=== PATIENT | female | born 1950 | race Caucasian/White ===

== ENCOUNTER 2024-11-22 09:50 | Observation (INO) | payer OTHER, SELFPAY ==
[2024-11-22] VITALS (11 sets, daily range): BP systolic 109–165; BP diastolic 48–98; PULSE 79–85; RESP 17–22; TEMP 36.6–36.9; O2SAT 94–100; BMI 36.3
--- NOTE | 2024-11-22 09:58 | ECG_ITS ---
Test Date: 2024-11-22 10:04:51 Measurements Intervals [place] Rate: 79 P: -66 SD: 220 QRS: 134 QRSD: 169 T: 112 QT: 430 QTc: 494 Interpretive Statements ELECTRONIC VENTRICULAR PACEMAKER ABNORMAL RHYTHM ECG No previous ECG available for comparison Electronically Signed On 11-23-2024 09:53:34 CDT by Saman Maravilla M.D.
--- NOTE | 2024-11-22 10:29 | ED_ITS ---
HPI - Female Genitourinary General Chief complaint: Urogenital-Female Stated complaint: UTI sx Time Seen by Provider: 11/22/24 09:52 History of Present Illness HPI Narrative: Patient has had symptoms consistent with urinary tract infection, she describes foul smelling urine and pain with urination, unfortunately she has been stuck on her couch, blocked in by chair, and had tried for days to get out. She does have some pain to her lower back however this is chronic from an old work injury, no new pain anywhere. Related Data Allergies Allergy/AdvReac Type Severity Reaction Status Date / Time atorvastatin Allergy Rash Verified 11/22/24 10:09 Review of Systems 2 Review of Systems: All systems reviewed & are unremarkable except as noted in HPI and below Exam 2 Narrative: EXAMINATION OF ORGAN SYSTEMS/BODY AREAS: Constitutional: Vital signs per nursing GENERAL:[No acute distress, non-toxic appearing.] Obese. Malodorous. HEAD: Normal with no signs of head trauma. EYES: EOMI, conjunctiva normal ENT: Hearing grossly intact LUNGS: Nonlabored breathing. HEART: [Regular rate and rhythm] ABD: [Soft], [nontender to palpation] EXT: Normal range of motion SKIN: Raw red skin buttocks; small red patch right lower leg. NEURO: [Alert and oriented x 3. No gross focal sensory or strength deficits.] PSYCH: Normal affect Course Vital Signs Vital signs: Vital Signs Temperature 98 F 11/22/24 10:02 Pulse Rate 80 11/22/24 10:02 Respiratory Rate 20 11/22/24 10:02 Blood Pressure 123/48 L 11/22/24 10:02 Pulse Oximetry 100 11/22/24 10:02 Temperature 98 F 11/22/24 10:02 Pulse Rate 79 11/22/24 17:04 Respiratory Rate 17 11/22/24 17:04 Blood Pressure 116/65 11/22/24 17:04 Pulse Oximetry 99 11/22/24 17:04 MDM - Female Genitourinary MDM Narrative Medical decision making narrative: 1) Differential diagnosis: UTI or other infection, electrolyte abnormality, rhabdomyolysis, 2) Comorbidities: Cardiac disease, obesity 3) External notes reviewed: n/a 4) History sources independently obtained from: EMS, family member at bedside 5) Discussion of management with: 6) Independent interpretation of: EKG my independent interpretation shows paced rhythm, rate 79, [place] 220, QRS 89, QTC 494, no ST elevations or signs of acute ischemia or arrhythmia. 7) Diagnostic tests or therapies considered but not ordered: 8) Social determinants of health: lives alone at home; steps at home 9) Shared decision making: Per pt and family member at bedside, social science research assistant assessed her house and felt she could not go home safely. Recommended placement. Labs here within acceptable limits other than low potassium which is repleted. SW consulted here. After many attempts to get patient transferred/admitted to assisted living, ultimately unsuccessful, since she cannot get around at home safely, I do feel she will need to be admitted. Discussed with hospitalist for admission. Lab Data 11/22/24 10:59 11/22/24 10:59 Labs: Lab Results 11/22/24 11/22/24 Range/Units 10:59 11:26 WBC 11.8 H (4.5-10.0) K/mm3 RBC 4.41 (4.2-5.4) M/mm3 Hgb 9.4 L (12.0-15.0) g/dL Hct 34.2 L (37.0-47.0) % MCV 77.6 L (80-100) fl MCH 21.3 L (26-34) pg MCHC 27.5 L (32-36) g/dl RDW 20.5 H (11.5-14.5) % Plt Count 297 (150-375) k/mm3 MPV 9.4 (7.4-10.4) fl Immature Gran % (Auto) 0.3 (0-0.5) % Neut % (Auto) 78.4 H (45.5-73.1) % Lymph % (Auto) 8.1 L (18.3-44.2) % [place] % (Auto) 10.3 H (2.6-8.5) % Eos % (Auto) 2.4 (0-4.4) % Baso % (Auto) 0.5 (0.2-1.2) % Lymph # (Auto) 0.96 (0.9-3.2) K/mm3 [place] # (Auto) 1.2 H (0.1-0.6) K/mm3 Eos # (Auto) 0.3 (0-0.3) K/mm3 Baso # (Auto) 0.1 (0.0-0.1) K/mm3 Abs Immat Gran (auto) 0.04 H (0.00-0.031) K/mm3 Absolute Neuts (auto) 9.2 H (1.3-6.7) K/mm3 Absolute Nucleated RBC 0.000 (0.0-0.012) K/mm3 Band Neutrophils % Not Reportable Nucleated RBC % 0.0 (0.0-0.2) % Platelet Estimate Adequate (Adequate) Hypochromasia 1+ Anisocytosis 1+ Schistocytes None seen Sodium 139 (137-145) mmol/L Potassium 3.3 L (3.4-5.0) mmol/L Chloride 105 (98-107) mmol/L Carbon Dioxide 25 (22-30) mmol/L Anion Gap 9 (4-12) mmol/L BUN 9 (7-17) mg/dL Creatinine 0.91 (0.7-1.0) mg/dL Estim Creat Clear Calc 55 ml/min Estimated GFR 60 (59 - ) Glucose 115 H (65-110) mg/dL Calcium 10.8 H (8.4-10.2) mg/dL Total Bilirubin 0.8 (0.2-1.3) mg/dL AST 22 (14-36) U/L ALT 11 (6-35) U/L Alkaline Phosphatase 135 H (38-126) U/L Total Creatine Kinase 38 (30-135) U/L Total Protein 7.1 (6.3-8.2) g/dL Albumin 3.7 (3.5-5.1) g/dL Urine Color Yellow (Yellow) Urine Appearance Clear (Clear) Urine pH 8.0 (5.0-9.0) Ur Specific [place] 1.019 (1.001-1.035) Urine Protein 2+ H (Negative) mg/dL Urine Glucose (UA) Negative (Negative) mg/dL Urine Ketones Trace H (Negative) mg/dL Ur Blood (Man) Negative (Negative) Urine Nitrate Negative (Negative) Urine Bilirubin Negative (Negative) Urine Urobilinogen 1.0 (<2.0) mg/dL Leukocyte Esterase Rfl Negative (Negative) MICHAEL/UL Urine RBC 3-5 H (0-2) /hpf Urine WBC 0-5 (0-3) /hpf Ur Squamous Epith Cells None seen (Few) /hpf Urine Bacteria None seen /hpf Urine Casts 0-2 Discharge Plan Discharge Clinical Impression: Generalized weakness, Inability to walk, Adult failure to thrive Patient Disposition: Still a Patient Condition: Stable Patient Language: [place] Follow-up/Referrals: PHYSICIAN NOT ON STAFF,NONSTAFF [Non-Staff] -
[2024-11-22 11:20] LABS: Hematocrit 34.2 % (37.0-47.0); Hemoglobin 9.4 g/dL (12.0-15.0); Immature Granulocyte Percent A 0.3 % (0-0.5); Lymphocytes Absolute Auto 0.96 K/mm3 (0.9-3.2); Mean Corpuscular HGB Conc 27.5 g/dl (32-36); Mean Corpuscular Hemoglobin 21.3 pg (26-34); Mean Corpuscular Volume 77.6 fl (80-100); Nucleated Red Blood Cells Absolute Auto 0.000 K/mm3 (0.0-0.012); Nucleated Red Blood Cells Perc 0.0 % (0.0-0.2); Platelet Count Result 297 k/mm3 (150-375); Red Blood Count 4.41 M/mm3 (4.2-5.4); White Blood Count 11.8 K/mm3 (4.5-10.0)
--- OUTSIDE RECORDS SUMMARY | 2024-11-22 11:23 | XMS_ITS | Clinical Summary ---
Author Organization [facility] Address [address] [place] [address] Phone Care Team Providers Care Java Development Manager Name Role Phone Jose Antonio Garcia Primary Care Provider [phone] Social History Tobacco Use Types Packs/Day Years Used Date Smoking Tobacco: Never Assessed Comments No Sex and Gender Information Value Date Recorded Sex Assigned at Not on file Legal Sex Female 9:42 PM CDT Gender Identity Not on file Sexual Orientation Not on file Plan of Treatment Health Maintenance Due Date Last Done Comments DEXA Bone Density 1950 Hepatitis C Virus (HCV) Screening 1950 TdaP Immunization 1950 Zoster Immunization (2 of 3) 03/11/2013 01/14/2013 Pneumococcal Immunization (5 0+ years) (2 of 2 - PCV) 01/14/2014 01/14/2013 Respiratory Syncytial Virus (RSV) Immunization (Adult) (1 - 1-dose 75+ series) 07/27/2023 SARS-COV-2 Immunization ( - 2023-25 season) 2024 Influenza Immunization (Seas on Ended) 2025 01/28/2017, 03/14/2015, 01/14/2013 Pneumococcal Immunization Combined Discontinued 01/14/2013 Mammogram Discontinued 07/01/2016 Hepatitis B Immunization Aged Out No longer eligible based on patient's age to complete this topic Human Papillomavirus (HPV) Immunization Aged Out No longer eligible based on patient's age to complete this topic Meningococcal Immunization (ACWY) Aged Out No longer eligible based on patient's age to complete this topic Rotavirus Immunization Aged Out No lo nger eligible based on patient's age to complete this topic Procedures Procedure Name Priority Date/Time Associated Diagnosis Comments JACINTA SCREENING BILATERAL DIGITAL W CAD Routine 07/01/2016 3:14 PM LEAD INSTRUCTOR/FLIGHT ATTENDANT Visit for screening mammogram from Last 3 Months or Most Recently Relevant to Health Maintenance Results * JACINTA SCREENING BILATERAL DIGITAL W CAD (07/01/2016 3:14 PM LEAD INSTRUCTOR/FLIGHT ATTENDANT) Anatomical Region Laterality Modality breast Bilateral Mammography 07/01/2016 2:32 PM LEAD INSTRUCTOR/FLIGHT ATTENDANT Narrative 07/01/2016 4:44 PM LEAD INSTRUCTOR/FLIGHT ATTENDANT - JACINTA SCREENING BILATERAL DIGITAL W CAD BILATERAL DIGITAL SCREENING MAMMOGRAM WITH CAD WITH MEDIOLATERAL OBLIQUE CRANIOCAUDAL: 07/01/2016 The study was acquired using digital technology and interpreted from soft copy. Current study was also evaluated with ICAD version 7.2. CLINICAL: New baseline screening. Patient has no complaints. No personal history of cancer. No family history of breast cancer. COMPARISONS: No prior exams were available for comparison. BREAST TISSUE:There are scattered fibroglandular densities in both breasts. FINDINGS: No significant masses, calcifications, or other findings are seen in either breast. IMPRESSION: BI-RAD 1 NEGATIVE There is no mammographic evidence of malignancy. A 1 year screening mammogram is recommended. The patient has been or will be contacted. The patient will be entered into a reminder system with a target due date of 1 year for her next screening exam. Electronically signed by: Silverio grimm/frank:07/01/2016 15:46:15 Vaccine Specialist: Jossie Boyd(Leobardo), [facility] letter sent: Normal Exam Reading location: [facility] BI-RADS: 1 Negative Procedure Note Silverio Jeffrey MD - 07/01/2016 - JACINTA SCREENING BILATERAL DIGITAL W CAD BILATERAL DIGITAL SCREENING MAMMOGRAM WITH CAD WITH MEDIOLATERAL OBLIQUE CRANIOCAUDAL: 07/01/2016 The study was acquired using digital technology and interpreted from soft copy. Current study was also evaluated with ICAD version 7.2. CLINICAL: New baseline screening. Patient has no complaints. No personal history of cancer. No family history of breast cancer. COMPARISONS: No prior exams were available for comparison. BREAST TISSUE:There are scattered fibroglandular densities in both breasts. FINDINGS: No significant masses, calcifications, or other findings are seen in either breast. IMPRESSION: BI-RAD 1 NEGATIVE There is no mammographic evidence of malignancy. A 1 year screening mammogram is recommended. The patient has been or will be contacted. The patient will be entered into a reminder system with a target due date of 1 year for her next screening exam. Electronically signed by: Silverio grimm/frank:07/01/2016 15:46:15 Vaccine Specialist: Jossie Boyd(Leobardo), [facility] letter sent: Normal Exam Reading location: [facility] BI-RADS: 1 Negative Jose Antonio Garcia IMG MAMMO ORDERABLES Final Resul t from Last 3 Months or Most Recently Relevant to Health Maintenance Insurance MEDICAID [place] Care Teams Java Development Manager Relationship Specialty Start Date End Date Jose Antonio Garcia [address] [place] [address] PCP - General Family Medicine 07/01/16
--- OUTSIDE RECORDS SUMMARY | 2024-11-22 11:23 | XMS_ITS | Data Portability ---
Author Organization [facility] JULIANXi Dickinson Address [address] [place] [address] Assessment No assessment recorded. Plan of Treatment Reminders Order Date Submit Date Provider Last Modified By Organization Details Last Modified Time Details Appointments None recorded. Lab lipid panel, serum 2021 022 [facility], [address] [place] [address], [address], [place], [address], 2 09:18:04 TSH + free T4, serum 2021 022 [facility], [address] [place] [address], [address], [place], [address], 2 09:18:02 CBC 2021 022 [facility], [address] [place] [address], [address], [place], [address], 2 09:18:03 CMP, serum or plasma 2021 022 [facility], [address] [place] [address], [address], [place], [address], 09:18:02 Referral physical therapist referral 2020 021 [email or web address] [facility], [address] [place], [address], 11:38:12 bariatric surgery referral 2020 [email or web address] Chandrakant Weaver, [address] [place], [address], 08:37:51 Procedures None recorded. Surgeries None recorded. Imaging None recorded. Medication Orders sumatripta n 50 mg tablet 2021 [facility] #[id number], [address], [place], [place], [id number], 12:39:33 zolpidem 5 mg tablet 2021 [facility], [address], [place], [place], [id number], 12:37:30 omeprazole 20 mg capsule,de layed release 2021 [facility], [address], [place], [place], [id number], 12:39:34 levetirace flores 500 mg tablet 2021 [facility], [address], [place], [place], [id number], 12:37:26 zolpidem 5 mg tablet 2020 [facility], [address], [place], [place], [id number], 17:18:42 omeprazole 20 mg capsule,de layed release 2020 [facility], [address], [place], [place], [id number], 17:18:37 sumatripta n 50 mg tablet 2020 [facility] #22836, [address], [place], [place], [id number], 15:50:28 furosemide 20 mg tablet 2020 [facility] #73505, [address], [id number], 15:50:24 levetirace flores 500 mg tablet 2020 [facility] #20435, [address], [id number], 15:50:25 losartan 100 mg tablet [address] [facility], [address], [id number], 15:50:27 amlodipine 10 mg tablet 2020 [facility] #26011, [address], [place], [place], [id number], 15:50:24 atorvastat in 40 mg tablet 2020 [facility], [address], [id number], 15:50:25 Patient TargetsNo targets recorded. Patient Instructions Encounter Date Encounter Id Patient Instructions Last Modified By Organization Details Last Modified Time 08/22/2021 [id number] Reviewed the following recommendations: -Stay home and separate from others as much as possible. -Monitor your symptoms and seek medical attention for trouble breathing, persistent chest pain, confusion, or bluish lips or face. -Wear a mask if you must be around other people. -Wash your hands often for 20 seconds with soap and water and clean high-touch surfaces daily -You may discontinue home isolation if your symptoms are improving and it has been 10 days since symptoms started. [email or web address] Not available 08/22/2021 10:43:24 10/03/2021 [id number] When You Want to Lose Weight: Care Instructions [email or web address] Not available 10/03/2021 12:37:16 Reason for Referral Bariatric Surgery Referral f or Morbid obesity Interested in bariatric surgery Referring Physician: Milana Lofton, Internal Medicine, Encounter Date: 01/03/2021 Physical Therapist Referral for Recurrent falls Generalzaed debility Referring Physician: Milana Lofton, Internal Medicine, Encounter Date: 01/03/2021 Results Created Date Observation Date Name Description Value Unit Range Abnormal Flag Note LastModifiedBy Organization Detail LastModifiedTime 10/04/19 22 10/04/2021 TSH+F REE T4 TSH 2.280 uIU/m L 0.450- 4.500 Not Available [facility] ([facility]) [address] [place], [address], 10/04/2021 09:18:01 10/04/19 22 10/04/2021 TSH+F REE T4 T4,free(dire ct) 1.07 NG/dL 0.82-1 .77 Not Available [facility] ([facility]) [address] [place], [address], 10/04/2021 09:18:01 10/04/19 22 10/04/2021 COMP. METAB OLIC PANEL (14) glucose 114 mg/dL 65-99 above high normal Not Available [facility] ([facility]) [address] [place], [address], 10/04/2021 09:18:02 10/04/19 22 10/04/2021 COMP. METAB OLIC PANEL (14) BUN 16 mg/dL 8-27 Not Available [facility] ([facility]) [address] [place], [address], 10/04/2021 09:18:02 10/04/19 22 10/04/2021 COMP. METAB OLIC PANEL (14) creatinine 1.26 mg/dL 0.57-1 .00 above high normal Not Available [facility] ([facility]) [address] [facility] [place], [address], 10/04/2021 09:18:02 10/04/19 22 10/04/2021 COMP. METAB OLIC PANEL (14) eGFR 45 mL/mi n/1.7 3 >59 below low normal Not Available [facility] ([facility]) [address] [facility] [place], [address], 10/04/2021 09:18:02 10/04/19 22 10/04/2021 COMP. METAB OLIC PANEL (14) BUN/creatini ne ratio 13 12-28 Not Available [facility] ([facility]) [address] [place], [address], 10/04/2021 09:18:02 10/04/19 22 10/04/2021 COMP. METAB OLIC PANEL (14) sodium 141 mmol/ L 134-14 4 Not Available [facility] ([facility]) [address] [place], [address], 10/04/2021 09:18:02 10/04/19 22 10/04/2021 COMP. METAB OLIC PANEL (14) potassium 4.3 mmol/ L 3.5-5. 2 Not Available [facility] ([facility]) [address] [place], [address], 10/04/2021 09:18:02 10/04/19 22 10/04/2021 COMP. METAB OLIC PANEL (14) chloride 104 mmol/ L 96-106 Not Available [facility] ([facility]) [address] [place], [address], 10/04/2021 09:18:02 10/04/19 22 10/04/2021 COMP. METAB OLIC PANEL (14) carbon dioxide, total 20 mmol/ L 20-29 Not Available [facility] ([facility]) [address] [place], [address], 10/04/2021 09:18:02 10/04/19 22 10/04/2021 COMP. METAB OLIC PANEL (14) calcium 10.7 mg/dL 8.7-10 .3 above high normal Not Available [facility] ([facility]) [address] [facility], [place], [address], 10/04/2021 09:18:02 10/04/19 22 10/04/2021 COMP. METAB OLIC PANEL (14) protein, total 7.2 g/dL 6.0-8. 5 Not Available [facility] ([facility]) [address] [place], [address], 10/04/2021 09:18:02 10/04/19 22 10/04/2021 COMP. METAB OLIC PANEL (14) albumin 4.1 g/dL 3.7-4. 7 Not Available [facility] ([facility]) [address] [place], [address], 10/04/2021 09:18:02 10/04/19 22 10/04/2021 COMP. METAB OLIC PANEL (14) globulin, total 3.1 g/dL 1.5-4. 5 Not Available [facility] ([facility]) [address] [place], [address], 10/04/2021 09:18:02 10/04/19 22 10/04/2021 COMP. METAB OLIC PANEL (14) A/G ratio 1.3 1.2-2. 2 Not Available [facility] ([facility]) [address] [place], [address], 10/04/2021 09:18:02 10/04/19 22 10/04/2021 COMP. METAB OLIC PANEL (14) bilirubin, total 0.4 mg/dL 0.0-1. 2 Not Available [facility] ([facility]) [address] [place], [address], 10/04/2021 09:18:02 10/04/19 22 10/04/2021 COMP. METAB OLIC PANEL (14) alkaline phosphatase 200 IU/L 44-121 above high normal Not Available [facility] ([facility]) [address] [place], [address], 10/04/2021 09:18:02 10/04/19 22 10/04/2021 COMP. METAB OLIC PANEL (14) AST (SGOT) 27 IU/L 0-40 Not Available [facility] ([facility]) [address] [facility], [address], 10/04/2021 09:18:02 10/04/19 22 10/04/2021 COMP. METAB OLIC PANEL (14) ALT (SGPT) 19 IU/L 0-32 Not Available [facility] ([facility]) [address] [place], [address], 10/04/2021 09:18:02 10/04/19 22 10/04/2021 CBC, PLATE LET, NO DIFFE RENTI AL WBC 6.7 x10e3 /uL 3.4-10 .8 Not Available [facility] ([facility]) [address] [place], [address], 10/04/2021 09:18:03 10/04/19 22 10/04/2021 CBC, PLATE LET, NO DIFFE RENTI AL RBC 4.78 x10e6 /uL 3.77-5 .28 Not Available [facility] ([facility]) [address] [place], [address], 10/04/2021 09:18:03 10/04/19 22 10/04/2021 CBC, PLATE LET, NO DIFFE RENTI AL hemoglobin 13.2 g/dL 11.1-1 5.9 Not Available [facility] ([facility]) [address] [place], [address], 10/04/2021 09:18:03 10/04/19 22 10/04/2021 CBC, PLATE LET, NO DIFFE RENTI AL hematocrit 41.6 % 34.0-4 6.6 Not Available [facility] ([facility]) [address] [facility], [place], [address], 10/04/2021 09:18:03 10/04/19 22 10/04/2021 CBC, PLATE LET, NO DIFFE RENTI AL MCV 87 fL 79-97 Not Available [facility] ([facility]) [address] [facility], [place], [address], 10/04/2021 09:18:03 10/04/1910/04/2021 CBC, PLATE LET, NO DIFFE RENTI AL MCH 27.6 pg 26.6-3 3.0 Not Available [facility] ([facility]) [address] [facility], [place], [address], 10/04/2021 09:18:03 10/04/19 22 10/04/2021 CBC, PLATE LET, NO DIFFE RENTI AL MCHC 31.7 g/dL 31.5-3 5.7 Not Available [facility] ([facility]) [address] [place], [address], 10/04/2021 09:18:03 10/04/19 22 10/04/2021 CBC, PLATE LET, NO DIFFE RENTI AL RDW 14.6 % 11.7-1 5.4 Not Available [facility] ([facility]) [address] [place], [address], 10/04/2021 09:18:03 10/04/19 22 10/04/2021 CBC, PLATE LET, NO DIFFE RENTI AL platelets 288 x10e3 /uL 150-45 0 Not Available [facility] ([facility]) [address] [facility], [place], [address], 10/04/2021 09:18:03 10/04/19 22 10/04/2021 CBC, PLATE LET, NO DIFFE RENTI AL NRBC RACE RELATIONS ADVISER Not Available [facility] ([facility]) [address] [place], [address], 10/04/2021 09:18:03 10/04/19 22 10/04/2021 LIPID PANEL cholesterol, total 155 mg/dL 100-19 9 Not Available [facility] ([facility]) [address] [place], [address], 10/04/2021 09:18:04 10/04/19 22 10/04/2021 LIPID PANEL triglyceride s 87 mg/dL 0-149 Not Available [facility] ([facility]) [address] [place], [address], 10/04/2021 09:18:04 10/04/19 22 10/04/2021 LIPID PANEL HDL cholesterol 84 mg/dL >39 Not Available [facility] ([facility]) [address] [place], [address], 10/04/2021 09:18:04 10/04/19 22 10/04/2021 LIPID PANEL VLDL cholesterol nigel 16 mg/dL 5-40 Not Available [facility] ([facility]) [address] [place], [address], 10/04/2021 09:18:04 10/04/19 22 10/04/2021 LIPID PANEL LDL chol calc ([facility]) 55 mg/dL 0-99 Not Available [facility] ([facility]) [address] [place], [address], 10/04/2021 09:18:04 10/04/19 22 10/04/2021 LIPID PANEL comment: RACE RELATIONS ADVISER Not Available [facility] ([facility]) [address], [place], [address], 10/04/2021 09:18:04 10/04/19 22 10/04/2021 LITHO LINK CKD PROGR AM interpretati on Note Medic al Direc tor's Note: Effec tive 2021, [facility] uses the 2020 CKD-E PI creat inine equat ion witho ut a race facto r to calcu late and repor t eGFR resul ts. eGFR resul ts repor sandra prior to this date using the 2008 CKD-E PI equat ion are no longe r inclu ded in this repor t inter preta tion. ----- ----- ----- ----- ----- ----- - CHRON IC KIDNE Y DISEA SE: EGFR, BLOOD PRESS URE, AND PROTE INURI A ASSES SMENT We presu me eGFR has been less than 60 mL/mi n/1.7 3mE2 on at least two occas ions space d at least 3 month s apart . Curre nt eGFR is 45 mL/mi n/1.7 3mE2 corre spond ing to CKD stage 3a. Potas sium is withi n goal and, 4.3 mmol/ L. EGFR, BLOOD PRESS URE, AND PROTE INURI A TREAT MENT SYLVAIN MENDOZA S - Guide lines recom mend a targe t blood press ure of 120/8 0 mmHg or less in CKD patie nts to reduc e cardi ovasc ular risk and CKD progr essio n. Asses sment of album inuri a (urin e album in:cr eatin ine ratio or urine prote in:cr eatin ine ratio prefe rred) is recom toyin d at least annua lly in CKD patie nts for stagi ng and disea se progn osis. EGFR, BLOOD PRESS URE, AND PROTE INURI A FOLLO W-UP - Spot Urine Panel is recom toyin d by guide lines , at least yearl y; fasti ng Renal Panel withi n 1 month ; BONE and SKIDDER RUNNER AL ASSES SMENT Calci um is above goal, 10.7 mg/dL . Carbo n Dioxi de is below goal and, 20 mmol/ L. Guide lines recom mend the measu remen t of 25-hy droxy vitam in D in patie nts with CKD. BONE and SKIDDER RUNNER AL TREAT MENT SYLVAIN MENDOZA S - Inter preta tions requi re simul taneo us measu remen ts of serum calci um and phosp horus . If not on alkal i, begin sodiu m bicar bonat e, one 650 mg pill 2-3 times daily , other langley incre ase dose. Stop calci um suppl ement s if in use. BONE and SKIDDER RUNNER AL FOLLO W-UP - fasti ng Renal Panel withi n 1 month ; fasti ng PTH with Renal Panel and 25-Hy droxy Vitam in D are recom toyin d by guide lines , at least yearl y; LIPID S ASSES SMENT LDL-C is optim al, 55 mg/dL . Trigl yceri de is марина l, 87 mg/dL . Non-H DL Deanne stero l is optim al, 71 mg/dL . HDL-C is high, 84 mg/dL . LIPID S TREAT MENT SYLVAIN STION S - Thera peuti c lifes juliete siddiqui es are alway s valua ble to maint ain optim al blood lipid statu s (diet , exerc ise, weigh t manag ement ). Ko nue stati n if in use. Consi colt measu remen t of LDL parti latia numbe r or Apo B to adjud icate need for furth er LDL lower ing thera py. If stati n canno t be mayra ated or incre ased, alter nativ es inclu de use of an intes tinal agent (ezet imibe or bile acid seque stran t) or niaci n. LIPID S FOLLO W-UP - fasti ng Lipid Panel withi n 12 month s; ANEMI A ASSES SMENT Hemog lobin is марина l, 13.2 g/dL. Hemog lobin targe t assum es LISSET is not in use. ANEMI A TREAT MENT SYLVAIN MENDOZA S - No speci fic chen e of treat ment is indic ated at this time. ANEMI A FOLLO W-UP - CBC withi n 12 month s; ----- ----- ----- ----- ----- ----- - DISCL AIMER These asses sment s and treat ment sylvain mendoza s are provi ded as a conve nienc e in suppo rt of the physi nathalia- patie nt relat ionsh ip and are not inten ded to repla ce the physi nathalia' s clini nigel judgm ent. They are deriv ed from natio nal guide lines in addit ion to other evide nce and exper t opini on. The clini nathalia shoul d consi colt this infor matio n withi n the angela xt of clini nigel opini on and the indiv idual patie nt. SEE ASHOK NCE FOR CHRON IC KIDNE Y DISEA SE PROGR AM: Kidne y Disea se Impro ving Globa l Outco mes (KDIG O) clini nigel pract ice guide lines are at http: //kdi go.or g/preet e/tho phan es/. Natio nal Kidne y Found ation Kidne y Disea se Outco mes Quali ty Initi ative (KDOQ I (TM)) , with its limit ation s and discl aimer s, are at www.[employer] idney .org/ profe jaysonon als/K DOQI. This progr am is inten ded for patie nts who have been diagn osed with stage s 3, 4, or pre-d ialys is 5 CKD. It is not inten ded for child castillo, pregn ant patie nts, or trans plant patie nts. Not Available [facility] ([facility]) [address], [place], [address], 10/04/2021 09:18:04 10/04/19 22 10/04/2021 LITHO LINK CKD PROGR AM pdf . Not Available [facility] ([facility]) [address], [place], [address], 10/04/2021 09:18:04 07/28/19 21 07/27/2020 trans -thor acic echoc ardio gram (TTE) (PROC ) No observ ation record ed. [email or web address] [facility] [address] [place], [address], 07/27/2020 18:30:42 08/18/19 23 08/17/2022 CT, head, w/o contr ast No observ ation record ed. [address] [place], [address], 08/19/2022 17:34:22 08/18/19 23 08/17/2022 CT, abdom en + pelvi s, w/o contr ast No observ ation record ed. [address] [place], [address], 08/19/2022 17:34:39 08/20/19 23 08/19/2022 NM, bone + joint , whole body No observ ation record ed. [facility] [address] [place], [address], 09/11/2022 09:11:07 09/22/1909/21/2022 imagi ng/di agnos tic resul t No observ ation record ed. [facility] [address] [place], [address], 09/23/2022 12:20:49 02/15/2002/14/2023 CT, head, w/o contr ast No observ ation record ed. [address] [place], [address], 02/17/2023 10:27:25 02/15/2002/14/2023 XR, chest No observ ation record ed. [address] [place], [address], 02/17/2023 10:27:36 Result Notes None recorded. Problems Name Problem SNOMED Code Status Onset Date Resolution Date Notes Provider Name and Address Organization Details Recorded Time Cellulit is of lower limb 675720955 Active 2017 Rosemarie Redding MD Attn: Michael g,[address] [facility], [place], [address], [place] [facility] 8 09:14:37 Recurren t falls 787888631 Active 2018 Milana Lofton MD Attn: Michael delacruz,[address] [facility], [place], [address], [place] [facility] 9 11:32:44 Pain of left shoulder joint 27265987642 033822 Active 2018 Milana Lofton MD Attn: Michael delacruz,[address] [facility], [place], [address], [place] [facility] 9 18:19:12 Insomnia 896812192 Active 2018 Milana Lofton MD Attn: Michael delacruz,[address] [place], [address], [place] [facility] 9 18:23:26 Active immuniza tion Active 2018 Milana Lofton MD Attn: Michael delacruz,[address] [facility], [place], [address], [place] [facility] 9 18:24:54 Gastroes ophageal reflux disease 812677445 Active 2019 Milana Lofton MD Attn: Michael delacruz,[address] [facility], [place], [address], [place] [facility] 0 17:15:15 Edema of lower extremit y 098022824 Active 2019 Bilatera l Milana Lofton MD Attn: Michael delacruz,[address] [facility], [place], [address], [place] [facility] 0 10:49:12 Hyperlip idemia 99769400 Active 2020 Milana Lofton MD Attn: Michael delacruz,[address] [place], [address], [place] [facility] 1 15:45:11 Morbid obesity 635968108 Active 2020 Milana Lofton MD Attn: Michael delacruz,[address] [facility], [place], [address], [place] [facility] 1 17:11:34 Hypergly cemia 63946990 Active 2021 Milana Lofton MD Attn: Michael g,[address] [facility], [place], [address], [place] [facility] 2 14:35:51 Medicati on monitori ng Active 2021 Milana Lofton MD Attn: Michael g,[address] [facility], [place], [address], [place] [facility] 2 13:17:29 [facility] l hyperten samuel 80103451 Active 2016 Rosemarie Redding MD Attn: Michael delacruz,[address] [facility], [place], [address], [place] [facility] 7 14:42:22 Mixed anxiety and depressi ve disorder 642783980 Active 2016 Rosemarie Redding MD Attn: Michael delacruz,[address] [facility], [place], [address], [place] [facility] 7 14:42:41 Headache 38620225 Active 2016 Dr.Ali Rosemarie Redding MD Attn: Michael delacruz,[address] [facility], [place], [address], [place] [facility] 7 14:48:36 Left bundle branch block 89931372 Active 2016 with complete heart block -s/p pacemake r -sees cardio Rosemarie Redding MD Attn: Michael g,[address] [facility], [place], [address], [place] [facility] 7 14:45:45 Seizure disorder 279302707 Active 2016 neurolog ist /Dr.Ali Rosemarie Redding MD Attn: Accountdavina g,[address] [facility], [place], [address], [place] [facility] 7 14:48:27 Colitis 28450636 Active 2016 seen by GI , had colonosc opy Rosemarie Redding MD Attn: Michael delacruz,[address] [facility], [place], [address], [facility] 7 14:57:05 Obesity 731005807 Completed 201601/03/2021 Milana Lofton MD Attn: Michael delacruz,[address] [facility], [place], [address], [facility] 1 17:11:50 Problem Notes None recorded. Procedures Surgical History Date Name Laterality Status Provider Name and Address Organization Details Recorded Time 05/12/19 16 Colonoscopy with biopsy completed [facility] 01/28/2017 14:37:46 05/12/19 12 Pacemaker completed [facility] 01/28/2017 14:36:22 Appendectomy completed [facility] 14:35:51 Knee Surgery completed [facility] 14:36:07 Dilation and Curettage completed [facility] 01/28/2017 14:36:28 Imaging Results None recorded. Procedure Notes None recorded. Medical Equipment None Reported. Allergies Allergen ID Allergen Name Allergen Category Reaction Reaction Severity Criticality Documentation Date Start Date Code Code System Note Provider Name and Address Organization Details Recorded Time 94167 Darvocet- N medicatio n rash Not available Not available 01/28/2017 80645 UNK [facility] 7 14:28:53 Medications Name Sig Start Date Stop Date Status Note LastModified by Organization Details LastModified Time Prescriptio n - Prior Authorizati on Request active Not Available Not Available N ot Available atorvastati n 40 mg tablet TAKE 1 TABLET BY MOUTH EVERY DAY active Not Available Not Available No t Available trazodone 50 mg tablet Take one tablet at bedtime as needed 2021 active Not Available Not Available Not Avai lable polyethylen e glycol 3350 17 gram oral powder packet MIX AND DRINK 1 PACKET BY MOUTH EVERY DAY DIRECTED active Not Available Not Available No t Available alprazolam 1 mg tablet 01/28 completed Not Available Not Available Not Available levetiracet am 500 mg tablet TAKE 3 TABLETS BY MOUTH TWICE DAILY active Not Available Not Available No t Available citalopram 10 mg tablet TAKE 1 TABLET BY MOUTH EVERY DAY WITH THE 20 MG TABLET 02/03 completed Not Available Not Available Not Available meloxicam 15 mg tablet TAKE 1 TABLET BY MOUTH EVERY DAY NEEDED 06/27 completed Not Available Not Available Not Available sumatriptan 50 mg tablet TAKE 1 TABLET BY MOUTH EVERY DAY DIRECTED active Not Available Not Available No t Available potassium chloride ER 10 mEq tablet,exte nded release TAKE 1 TABLET BY MOUTH EVERY DAY FOR 10 DAYS 02/03 completed Not Available Not Available Not Available acetaminoph en 300 mg-codeine 30 mg tablet 01/28 completed Not Available Not Available Not Available hydrocodone 10 mg-acetamin ophen 325 mg tablet 01/28 completed Not Available Not Available Not Available acetaminoph en 500 mg tablet TAKE 2 TABLETS BY MOUTH THREE TIMES DAILY active Not Available Not Available No t Available carvedilol 3.125 mg tablet TAKE 1 TABLET BY MOUTH TWICE DAILY active Not Available Not Available No t Available oxycodone-a cetaminophe n 5 mg-325 mg tablet 01/28 completed Not Available Not Available Not Available citalopram 20 mg tablet Take 1 tablet every day by oral route for 30 days. 04/20 completed Not Available Not Available Not Available famotidine 20 mg tablet TAKE 1 TABLET BY MOUTH TWICE DAILY 05/22 completed Not Available Not Available Not Available amlodipine 10 mg tablet TAKE 1 TABLET BY MOUTH EVERY DAY active Not Available Not Available No t Available cephalexin 500 mg capsule Take 1 capsule 3 times a day by oral route for 7 days. 07/04 completed Not Available Not Available Not Available pantoprazol e 40 mg tablet,cricket yed release Take 1 tablet every day by oral route for 30 days. 06/27 completed Not Available Not Available Not Available ferrous sulfate 325 mg (65 mg iron) tablet Take 1 tablet every day by oral route for 30 days. 04/20 completed Not Available Not Available Not Available omeprazole 20 mg capsule,del ayed release TAKE 1 CAPSULE BY MOUTH EVERY DAY BEFORE A MEAL active Not Available Not Available No t Available acetaminoph en 300 mg-codeine 60 mg tablet 01/28 completed Not Available Not Available Not Available hydrochloro thiazide 25 mg tablet 01/28 completed Not Available Not Available Not Available zolpidem 5 mg tablet TAKE 1 TABLET BY MOUTH EVERY DAY NEEDED active Not Available Not Available No t Available furosemide 20 mg tablet TAKE 1 TABLET BY MOUTH DAILY. FOLLOW UP active Not Available Not Available No t Available losartan 50 mg-hydrochl orothiazide 12.5 mg tablet 01/28 completed Not Available Not Available Not Available losartan 100 mg tablet TAKE 1 TABLET BY MOUTH EVERY DAY active Not Available Not Available No t Available losartan 100 mg-hydrochl orothiazide 12.5 mg tablet 01/28 completed Not Available Not Available Not Available hydrochloro thiazide 12.5 mg tablet 01/28 completed Not Available Not Available Not Available Fluzone Quad 8121-2891 60 mcg (15 mcg x 4)/0.5 mL IM suspension 01/28 completed Not Available Not Available Not Available Vitals Date Recorded Body height Provider Name an d Address Organization Details Last Updated DateTime 05/22/2020 161.29 cm Alina Gonzales MA [facility] 1 16:52:27 Date Recorded Body height Provider Name an d Address Organization Details Last Updated DateTime 07/13/2020 161.29 cm Alina Gonzales MA [facility] 1 10:48:23 Date Recorded Body height Provider Name an d Address Organization Details Last Updated DateTime 08/22/2021 161.29 cm Alina Gonzales MA [facility] 2 10:42:02 Date Recorded Body height Body mass index (BMI) Body weight Heart rate Body temperature Oxygen saturation Oxygen saturation in Arterial blood by Pulse oximetry Systolic And Diastolic Provider Name and Address Organization Details Last Updated DateTime 2 161.29 cm 44.1 kg/m2 099358. 87 g 97 /min 98.1 [degF] 97 % 97 % 126/84 mm[Hg] Alina Gonzales MA [facility] 2 11:56:48 Date Recorded Body height Body mass index (BMI) Body weight Body temperature Oxygen saturation Oxygen saturation in Arterial blood by Pulse oximetry Heart rate Systolic And Diastolic Provider Name and Address Organization Details Last Updated DateTime 1 161.29 cm 43.8 kg/m2 474695. 68 g 98.3 [degF] 97 % 97 % 85 /min 126/78 mm[Hg] Alina Gonzales MA [facility] 1 16:37:54 Social History Question Answer Notes LastModified by Organizat [employer] Details LastModified Time Tobacco Smoking Status Former Smoker Quit - 1981 [place], [place] [facility] 01/28/2017 14:34:44 What Is Your Level Of Caffeine Consumption? Moderate Information not available 01/28/2017 How Much Tobacco Do You Chew? None Information not available 01/28/2017 What Type Of Diet Are You Following? REGULAR Information not available 01/28/2017 Which Illicit Or Recreational Drugs Have You Used? Denies Information not available 01/28/2017 Marital Status Informatio n not available 01/28/2017 What Was The Date Of Your Most Recent Tobacco Screening? 10/03/2021 [email or web address] Information not available 10/03/2021 General Stress Level High Information not available 01/28/2017 Sex: Unknown Functional Status Question Answer Note LastModified by Organizat ion Details LastModified Time What is your level of alcohol consumption? None Information not available 01/28/2017 What is your occupation? Disabled Information not available 01/28/2017 What is your exercise level? Occasional walking Information not available 01/28/2017 Mental Status None recorded. Family History Relationship Description Onset Age of this Age Resolved Age Notes LastModified by Organization Details LastModified Time Father Harmful pattern of use of alcohol Not available 2016 14:34:01 Brother Depressive disorder Not available 2016 14:34:10 Medical History Condition Response High Blood Pressure Y Thyroid Problems Y Depression Y Blood Clots Y Anxiety Disorder Y Allergies Y Headaches Y Heart Failure Y Gynecological HistoryNo gynecological history recorded. Obstetrics History GPAL:G 0 P 0 0 0 0 Immunizations Vaccine Type Date Status Note Provider Nam e and Address Organization Details Recorded Time Influenza, split virus, quadrivalent, preservative 7 completed Not Available [facility] 05/29/2019 02:44:13 Influenza, split virus, quadrivalent, preservative 9 completed Not Available [facility] 05/29/2019 02:38:47 Past Encounters Encounter ID Performer Location Encounter Start Date Encounter Closed Date Diagnosis/Indication Diagnosis SNOMED-CT Code Diagnosis ICD10 Code Diagnosis Note [id number] MD Cyndee Barrera (Adult Med) [address] [place] [address] 01/28/2017 14:08:10 01/31/2017 16:08:02 Essential hypertension 29713374 I10 stable on Losarton 100mg daily /amlodipin e 10 mg daily Mixed anxi ety and depressive disorder 754691303 F41.8 stable on Celexapt is aware that xanax is not indicated for sleep 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 -s/p pacemakerp t sees cardiologi st Seizure disorder 4743731 02 G40.909 on Keppra per neuro Administra tion of influenza vaccine 79077491 Z23 Obesity 209517070 E66.9 healthy diet and exercise discussed with pt Knee pain 99122122 M25.5 61 M25.562 s/p TKR several yrs agopt is aware that narcotics are not going to be prescribed [id number] MD Cyndee Barrera (Adult Med) [address] [place] [address] 04/10/2017 11:27:43 04/10/2017 17:34:32 Mixed anxiety and depressive disorder 935416590 F41.8 stable on Celexa Insomnia 008221646 G47.0 0 pt tried trazodone without much helphad sleep study which was normal per ptTry ambien prn Essential hypertension 35194370 I10 stable on Losarton 100mg daily /amlodipin e 10 mg daily Seizure disorder 6059564 02 G40.909 on Keppra per neuropt to check with neuro for memory problem [id number] MD Cyndee Barrera (Adult Med) [address] [place] [address] 06/27/2017 11:37:36 07/03/2017 14:49:22 Cellulitis of lower limb 897288144 L03.119 with weight gain /edemagent le diuresis and antibiotic Essential hypertension 66377305 I10 stable on Losarton 100mg daily /amlodipin e 10 mg daily Mixed anxi ety and depressive disorder 304412398 F41.8 stable on Celexa Left bundl e branch block 31762122 I44.7 with complete heart block -s/p pacemakerp t sees cardiologi st Screening mammography 24 423146 Z12.31 [id number] MD Cyndee Barrera (Adult Med) [address] [place] [address] 07/04/2017 08:20:12 07/08/2017 15:15:55 Mixed anxiety and depressive disorder 320007180 F41.8 Increase Celexa 30 mg daiy Essential hypertension 54044367 I10 stableBut pt is not sure about meds -pt to call with medspt supposed to take Losarton 100mg daily /amlodipin e 10 mg daily Cellulitis of lower limb 024013466 L03.119 improved [id number] MD Anupam Ramírez (Adult Med) [address] [place] [address] 02/03/2019 10:37:01 02/04/2019 09:28:34 Recurrent falls 506051081 R29.6 Seizure disorder 9265963 02 G40.909 Headache 04069534 R51 Obesity 238321218 E66.9 Essential hypertension 83799611 I10 Left bundl e branch block 32314326 I44.7 Insomnia 504226692 G47.0 0 Colitis 68148116 K52.9 [id number] MD Anupam Ramírez (Adult Med) [address] [place] [address] 04/07/2019 16:59:20 04/09/2019 10:44:46 Pain of left shoulder joint 9479328744 9846975 M25.512 Essential hypertension 11396552 I10 Mixed anxi ety and depressive disorder 323318476 F41.8 Obesity 099906883 E66.9 Recurrent falls 46092922 2 R29.6 Insomnia 282341460 G47.0 0 Active immunization 3387 9002 Z23 [id number] MD Anupam Ramírez (Adult Med) [address] [place] [address] 08/03/2019 16:06:54 08/04/2019 15:26:12 Headache 04699769 R51 Insomnia 260933936 G47.0 0 Gastroesop hageal reflux disease 874538183 K21.9 [id number] MD Anupam Ramírez (Adult Med) [address] [place] [address] 10/18/2019 08:24:27 10/19/2019 12:54:08 Edema of lower extremity 449658749 R60.0 Elevate legs [id number] MD Anupam Ramírez (Adult Med) [address] [place] [address] 03/09/2020 08:49:22 03/09/2020 15:25:43 [id number] MD Anupam Ramírez (Adult Med) [address] [place] [address] 04/20/2020 08:10:49 04/26/2020 03:46:54 [id number] MD Anupam Ramírez (Adult Med) [address] [place] [address] 05/22/2020 08:34:00 05/22/2020 17:27:53 [id number] MD Anupam Ramírez (Adult Med) [address] [place] [address] 07/13/2020 08:25:22 07/14/2020 20:26:27 Essential hypertension 25327082 I10 Headache 24112739 R51.9 Edema of l ower extremity 921516664 R60.0 Elevate legs Seizure disorder 0835775 02 G40.909 Hyperlipidemia 34544068 E78.5 [id number] MD Anupam Ramírez (Adult Med) [address] [place] [address] 01/03/2021 16:01:52 01/04/2021 08:07:05 Insomnia 745139225 G47.00 Gastroesop hageal reflux disease 547246341 K21.9 Morbid obesity 127710603 E66.01 Recurrent falls 54034458 2 R29.6 [id number] MD Anupam Ramírez (Adult Med) [address] [place] [address] 08/22/2021 10:12:18 08/23/2021 13:40:53 Headache 58436173 R51.9 Pt advised to recontact pharmacy with informatio n received from [facility]. [id number] MD Anupam Ramírez (Adult Med) [address] [place] [address] 10/03/2021 11:24:34 10/04/2021 07:59:11 Essential hypertension 89507730 I10 Cont current RX Gastroesop hageal reflux disease 653505657 K21.9 Morbid obesity 327805116 E66.01 F/U with bariatric surgeon Seizure disorder 7019589 02 G40.909 Headache 52197346 R51.9 Insomnia 170597049 G47.0 0 Health Concerns Section Related Observation LastModified by Organization Detai ls LastModified Time None Recorded Concern Status LastModified by Organization Details LastModified Time None Recorded Advance Directives Directive None Recorded Payers Insurance Date Sequence Insurance Name Policy Number Policy Petty Covered Member ID Petty Member ID Guarantor Name 10/27/2021 1 [place] Kami Egan [id number] Kami Egan 10/27/2021 [place] [facility] Kami Egan [id number] Kami Egan 10/27/2021 2 [place] WHEN MEDICARE OR MEDICARE REPLACEMENT PRIMARY) Kami Egan [id number] Kami Egan 10/27/2021 2 [place] Kami Egan [id number] Kami Egan 10/27/2021 2 [employer] (MEDICARE REPLACEMENT/AD VANTAGE - HMO) Kami Egan [id number] Kami Egan 11/26/2021 1 [employer] [place] ON [place] AFTER 2020 (MEDICAID REPLACEMENT - HMO) Kami Egan [id number] Kami Egan 09/13/2023 1 [employer] - PREMIER PLAN - DUAL (MEDICARE - MEDICAID REPLACEMENT HMO) Kami Egan [id number] Kami Egan 10/29/2021 1 [employer] - PREMIER PLAN - DUAL (MEDICARE - MEDICAID REPLACEMENT HMO) Kami Phillipsman [id number] Kami Mendoza Julisa 10/27/2021 2 [employer] [place] AFTER 2020 (MEDICARE REPLACEMENT/AD VANTAGE - HMO) Kami Mendoza Julisa [id number] Kami Mendoza Julisa 11/07/2021 1 [facility] (MEDICARE REPLACEMENT HMO) IrinaKelly Egan [id number] Irina Julisa 12/17/2021 1 [employer] [place] AFTER 2020 (MEDICAID REPLACEMENT - HMO) IrinaKelly Egan [id number] IrinaKelly Egan 10/29/2021 1 [employer] [place] 2020 ([place]ID REPLACEMENT - HMO) IrinaKelly Egan [id number] IrinaKelly Egan 06/21/2021 1 UNSPECIFIED REMIT PAYOR Kami Egan 11/13/2021 2 [facility] - DOS ON OR AFTER 2020 - DUAL ELIGIBLE (MEDICARE REPLACEMENT/AD VANTAGE - HMO) IrinaKelly Egan [id number] IrinaKelly Egan 09/13/2023 MEDICARE A[place]: [facility] Kami Patricia Egan [id number] Irina Julisa 10/27/2021 1 [facility] (MEDICAID HMO) [id number] Irina Julisa [id number] Irina Julisa Notes Date Note Type Note Provider Name and Address Organization Details Recorded Time 07/13/2020 text/html Telephone visit due to Covid-19 precautions. She needs medication refills Milana Lofton MD Attn: Accounting,[address] [place], [address], [facility] 07/13/2020 15:50:48 01/03/2021 text/html Not sleeping wel l since 's since losing her nine months ago. She has lots of heartburn and has been using bottles of antacid tabs. She feels weak and does not move arouind a lot Milana Lofton MD Attn: Accounting,[address] [place], [address], [facility] 01/03/2021 17:21:11 08/22/2021 text/html Telephone visit due to Sars-CoV-2 precautions. Pt had questions about coverage of her migraine medication. Milana Lofton MD Attn: Accounting,[address] [facility], [place], [address], [facility] 08/22/2021 13:55:24 10/03/2021 text/html Continues to hav e trouble sleeping. Wants to f/u with bariatric surgery Milana Lofton MD Attn: Accounting,[address] [facility], [place], [address], [facility] 10/03/2021 12:42:26 OBGyn Episode No OBEpisode recorded.
[2024-11-22 11:38] LABS: Anisocytosis 1+; Hypochromasia 1+; Schistocytes None Seen
[2024-11-22 11:46] LABS: Add Urine Microscopic? YES; Appearance Urine Clear (Clear); Glucose Urine UA Negative (Negative); Leukocyte Esterase Ur Negative LEU/UL (Negative); Nitrate Urine Negative (Negative); Non Pathogenic Casts 0-2; Specific Grav Ur 1.019 (1.001-1.035)
[2024-11-22 11:58] LABS: Alanine Aminotransferase 11 U/L (6-35); Albumin Level 3.7 g/dL (3.5-5.1); Alkaline Phosphatase 135 U/L (38-126); Anion Gap 9 mmol/L (4-12); Aspartate Amino Transferase 22 U/L (14-36); Bilirubin,Total 0.8 mg/dL (0.2-1.3); Blood Urea Nitrogen 9 mg/dL (7-17); Calcium 10.8 mg/dL (8.4-10.2); Carbon Dioxide 25 mmol/L (22-30); Chloride 105 mmol/L (98-107); Creatine Kinase 38 U/L (30-135); Estimated CRCL calculation 55 ml/min; Estimated Glomerular Filt Rate 60; Glucose 115 mg/dL (65-110); Potassium 3.3 mmol/L (3.4-5.0); Sodium 139 mmol/L (137-145); Total Protein 7.1 g/dL (6.3-8.2)
[2024-11-22] MEDS: POTASSIUM CHLORIDE 20 MEQ ER TABLET 40 MEQ PO (12:20)
--- NOTE | 2024-11-22 12:28 | PC.NURSE ---
Care coordination at bedside
--- NOTE | 2024-11-22 15:58 | PCCCNOTE ---
1230: Called to the ED to discuss SNF placement for pt. Pt. will go anywhere , except [facility]. Call placed to Lucy with [facility], they do not accept pt's insurance. Called Kneia, with [facility], she thinks she is able to take [facility]. Referral sent to her, awaiting her to get the auth. PASSR completed. 1525:Contacted Kenia for an update, awaiting return call. ED charge notified.
--- NOTE | 2024-11-22 17:08 | PC.NURSE ---
Dinner tray ordered
--- NOTE | 2024-11-22 20:59 | P.HP_ITS ---
H&P: HPI History of Present Illness Date/Time: 11/22/24 20:59 Chief Complaint: Deconditioning Narrative: This is a 74-year-old female who is a fair historian. Unclear of her medical history other than allergies and lower back pain. She was found by health social work professor at home stuck on her couch blocked in by another chair. Patient reports she has been trying for days to get out. She has chronic low back pain from an old fall at work. She reports it was burning a bit during urination as well. She otherwise has no complaints on comprehensive review systems. Review of Systems Review of Systems: All systems reviewed & are unremarkable except as noted in HPI and below (HPI) Meds Home Medications and Allergies Home Medications ?Medication ?Instructions ?Recorded ?Confirmed ?Type diphenhydramine HCl See Rx Instructions .Route 11/22/24 11/22/24 History .COMPLEX PRN allergy symptoms Allergies Allergy/AdvReac Type Severity Reaction Status Date / Time atorvastatin Allergy Rash Verified 11/22/24 20:51 Vital Signs Vital Signs - 24 hr 11/22/24 10:02 11/22/24 10:41 11/22/24 11:25 Temperature 98 F Pulse Rate 80 79 80 Respiratory Rate 20 19 20 Blood Pressure 123/48 L 165/69 H Pulse Oximetry 100 94 11/22/24 11:32 11/22/24 11:32 11/22/24 12:28 Temperature Pulse Rate 79 85 79 Respiratory Rate 20 22 H 18 Blood Pressure 158/69 H 158/69 H 163/98 H Pulse Oximetry 100 98 100 11/22/24 12:43 11/22/24 14:00 11/22/24 15:47 Temperature Pulse Rate 79 80 80 Respiratory Rate 20 19 17 Blood Pressure 109/54 L Pulse Oximetry 100 100 100 11/22/24 17:04 11/22/24 19:20 Temperature Pulse Rate 79 80 Respiratory Rate 17 20 Blood Pressure 116/65 112/93 H Pulse Oximetry 99 Exam Const: General: comfortable and no acute distress Other: A&O x3 HENMT: Mouth: Yes moist mucous membranes Eyes: Pupils: Equal, round and reactive pupils present Neck: Neck: supple Resp: Effort & Inspection: normal respiratory effort Auscultation: clear to auscultation bilaterally Cardio: Rate: regular rate Rhythm: regular rhythm GI: Inspection: non-distended GI Palp: Yes Soft to palpation : General: Yes bladder normal to palpation Neuro: Sensory Exam: normal sensation Other: Globally weak. Extrem: General: no edema H&P: Results Labs Labs: Short CBC 11/22/24 Range/Units 10:59 WBC 11.8 H (4.5-10.0) K/mm3 Hgb 9.4 L (12.0-15.0) g/dL Hct 34.2 L (37.0-47.0) % Plt Count 297 (150-375) k/mm3 BMP 11/22/24 10:59 Sodium 139 Potassium 3.3 L Chloride 105 Carbon Dioxide 25 BUN 9 Creatinine 0.91 Glucose 115 H Calcium 10.8 H Cardiac Enzymes 11/22/24 Range/Units 10:59 Total Creatine Kinase 38 (30-135) U/L Liver Function 11/22/24 Range/Units 10:59 Total Bilirubin 0.8 (0.2-1.3) mg/dL AST 22 (14-36) U/L ALT 11 (6-35) U/L Alkaline Phosphatase 135 H (38-126) U/L Albumin 3.7 (3.5-5.1) g/dL Urine 11/22/24 Range/Units 11:26 Urine Color Yellow (Yellow) Urine Appearance Clear (Clear) Urine pH 8.0 (5.0-9.0) Ur Specific [place] 1.019 (1.001-1.035) Urine Protein 2+ H (Negative) mg/dL Urine Glucose (UA) Negative (Negative) mg/dL Assessment and Plan Assessment and plan (1) Adult failure to thrive: Code(s): R62.7 - Adult failure to thrive Status: Acute (2) Inability to walk: Code(s): R26.2 - Difficulty in walking, not elsewhere classified Status: Acute (3) Generalized weakness: Code(s): R53.1 - Weakness Status: Acute Plan This is a 74-year-old female who is a fair historian. Unclear of her medical history other than allergies and lower back pain. She was found by health social work professor at home stuck on her couch blocked in by another chair. Patient reports she has been trying for days to get out. She has chronic low back pain from an old fall at work. She reports it was burning a bit during urination as well. She otherwise has no complaints on comprehensive review systems. Your evaluation revealed WBC 11.8, hemoglobin 9.4, potassium 3.3. She received KCl replacement 40 mEq. Magnesium check is pending. Creatinine kinase 38. Urinalysis positive for 3-5 RBC, trace ketones, 2+ protein. Tylenol p.r.n., lidocaine patch for dorsalgia. PT OT evaluations pending. Trend hypokalemia, leukocytosis. No evidence of infection. Patient would like to be full code. Saline lock IV. Regular diet. Admitted on 11/22/2024 for weakness and failure to thrive. Hospitalist [facility] Advance Care Plan I have confirmed that the patient's Advanced Care Plan is present, code status is documented, or surrogate decision maker is listed in patient medical record.: Yes Medication Reconciliation I have utilized all available resources to obtain, update and review the patients current medications (includes all prescriptions, OTC, herbals, cannabis, and nutritional supplements).: Yes
[2024-11-22 21:22] LABS: Magnesium 1.8 mg/dL (1.6-2.3)
--- NOTE | 2024-11-22 22:25 | WNDPHOTO ---
PHOTO ONLY - See Nursing Notes and/ or assessments for documentation.
[2024-11-22] MEDS: LIDOCAINE 5% PATCH 1 PATCH TRANSDERM (22:36)
[2024-11-23] MEDS: ACETAMINOPHEN 325 MG TABLET 650 MG PO (03:00)
[2024-11-23 04:35] VITALS: BP 125/59; PULSE 80; RESP 16; TEMP 35.9; O2SAT 98
[2024-11-23 06:15] LABS: Hematocrit 31.6 % (37.0-47.0); Hemoglobin 8.6 g/dL (12.0-15.0); Immature Granulocyte Percent A 0.4 % (0-0.5); Lymphocytes Absolute Auto 1.78 K/mm3 (0.9-3.2); Mean Corpuscular HGB Conc 27.2 g/dl (32-36); Mean Corpuscular Hemoglobin 21.7 pg (26-34); Mean Corpuscular Volume 79.8 fl (80-100); Nucleated Red Blood Cells Absolute Auto 0.000 K/mm3 (0.0-0.012); Nucleated Red Blood Cells Perc 0.0 % (0.0-0.2); Platelet Count Result 261 k/mm3 (150-375); Red Blood Count 3.96 M/mm3 (4.2-5.4); White Blood Count 10.0 K/mm3 (4.5-10.0)
[2024-11-23 06:43] LABS: Anion Gap 8 mmol/L (4-12); Blood Urea Nitrogen 13 mg/dL (7-17); Calcium 9.7 mg/dL (8.4-10.2); Carbon Dioxide 24 mmol/L (22-30); Chloride 106 mmol/L (98-107); Estimated CRCL calculation 46 ml/min; Estimated Glomerular Filt Rate 49; Glucose 101 mg/dL (65-110); Magnesium 1.6 mg/dL (1.6-2.3); Potassium 3.6 mmol/L (3.4-5.0); Sodium 138 mmol/L (137-145)
[2024-11-23 07:08] LABS: Anisocytosis 1+; Hypochromasia 1+; Schistocytes None Seen
[2024-11-23 08:30] VITALS: O2SAT 98
[2024-11-23] MEDS: LIDOCAINE 5% PATCH 1 PATCH TRANSDERM (08:30)
--- NOTE | 2024-11-23 11:33 | PM.IMPN ---
Progress Note: A&P Assessment and Plan (1) Adult failure to thrive: Code(s): R62.7 - Adult failure to thrive Status: Acute (2) Inability to walk: Code(s): R26.2 - Difficulty in walking, not elsewhere classified Status: Acute (3) Generalized weakness: Code(s): R53.1 - Weakness Status: Acute Subjective Date/time seen: 11/23/24 11:33 Interval history: 74-year-old female who is a fair historian. Unclear of her medical history other than allergies and lower back pain. She was found by social insurance analyst at home stuck on her couch blocked in by another chair. 11/23/2024 Review of Systems Review of Systems: All systems reviewed & are unremarkable except as noted in HPI and below (HPI) Exam Const: General: comfortable and no acute distress Other: A&O x3 HENMT: Mouth: Yes moist mucous membranes Eyes: Pupils: Equal, round and reactive pupils present Neck: Neck: supple Resp: Effort & Inspection: normal respiratory effort Auscultation: clear to auscultation bilaterally Cardio: Rate: regular rate Rhythm: regular rhythm GI: Inspection: non-distended : General: Yes bladder normal to palpation Bimanual exam- vagina & uterus: bladder normal to palpation Neuro: Cranial nerves: Yes Equal, round and reactive pupils present Sensory Exam: normal sensation Other: Globally weak. Extrem: General: no edema Objective Data Vital Signs Vital Signs: Vital Signs - 24 hr 11/22/24 12:28 11/22/24 12:43 11/22/24 14:00 Temperature Pulse Rate 79 79 80 Respiratory Rate 18 20 19 Blood Pressure 163/98 H Pulse Oximetry 100 100 100 Oxygen Delivery 11/22/24 15:47 11/22/24 17:04 11/22/24 19:20 Temperature Pulse Rate 80 79 80 Respiratory Rate 17 17 20 Blood Pressure 109/54 L 116/65 112/93 H Pulse Oximetry 100 99 Oxygen Delivery 11/22/24 20:55 11/23/24 00:40 11/23/24 04:35 Temperature 98.4 F 96.7 F L Pulse Rate 79 80 Respiratory Rate 17 16 Blood Pressure 117/63 125/59 L Pulse Oximetry 97 98 Oxygen Delivery Room Air 11/23/24 08:30 Temperature Pulse Rate Respiratory Rate Blood Pressure Pulse Oximetry 98 Oxygen Delivery Room Air Intake/Output Intake/Output: Intake & Output 11/20/24 11/21/24 11/22/24 11/23/24 23:59 23:59 23:59 23:59 Intake Total 476 Output Total 200 Balance -200 476 Meds/Results Medications: Active Medications Generic Name Dose Route Start Last Admin Trade Name Dyllanq PRN Reason Stop Dose Admin Acetaminophen 650 mg 11/22/24 21:00 11/23/24 03:00 Acetaminophen 325 Mg Tablet PO 650 mg Q4H PRN Administration Mild Pain (1-3) or Fever Lidocaine 1 patch 11/22/24 21:05 11/23/24 08:30 Lidocaine 5% Patch TRANSDERM 1 patch DAILY NIEVES Administration Labs Labs: Laboratory Results - last 24 hr 11/22/24 11/22/24 11/23/24 10:59 11:26 05:30 WBC 10.0 RBC 3.96 L Hgb 8.6 L Hct 31.6 L MCV 79.8 L MCH 21.7 L MCHC 27.2 L RDW 20.7 H Plt Count 261 MPV 9.6 Immature Gran % (Auto) 0.4 Neut % (Auto) 64.8 Lymph % (Auto) 17.8 L Finney % (Auto) 11.7 H Eos % (Auto) 4.8 H Baso % (Auto) 0.5 Lymph # (Auto) 1.78 Finney # (Auto) 1.2 H Eos # (Auto) 0.5 H Baso # (Auto) 0.1 Abs Immat Gran (auto) 0.04 H Absolute Neuts (auto) 6.5 Absolute Nucleated RBC 0.000 Band Neutrophils % Not Reportable Not Reportable Nucleated RBC % 0.0 Platelet Estimate Adequate Adequate Hypochromasia 1+ 1+ Anisocytosis 1+ 1+ Schistocytes None seen None seen Sodium 139 138 Potassium 3.3 L 3.6 Chloride 105 106 Carbon Dioxide 25 24 Anion Gap 9 8 BUN 9 13 Creatinine 0.91 1.08 H Estim Creat Clear Calc 55 46 Estimated GFR 60 49 L Glucose 115 H 101 Calcium 10.8 H 9.7 Magnesium 1.8 1.6 Total Bilirubin 0.8 AST 22 ALT 11 Alkaline Phosphatase 135 H Total Creatine Kinase 38 Total Protein 7.1 Albumin 3.7 Urine Color Yellow Urine Appearance Clear Urine pH 8.0 Ur Specific [place] 1.019 Urine Protein 2+ H Urine Glucose (UA) Negative Urine Ketones Trace H Ur Blood (Man) Negative Urine Nitrate Negative Urine Bilirubin Negative Urine Urobilinogen 1.0 Leukocyte Esterase Rfl Negative Urine RBC 3-5 H Urine WBC 0-5 Ur Squamous Epith Cells None seen Urine Bacteria None seen Urine Casts 0-2
--- NOTE | 2024-11-23 13:21 | PM.DS ---
DS: Admitting Diagnosis Discharge Date 11/23/2024 Admitting Diagnosis Deconditioning DS: Discharge Diagnosis Discharge Diagnosis (1) Adult failure to thrive: Code(s): R62.7 - Adult failure to thrive Status: Acute (2) Inability to walk: Code(s): R26.2 - Difficulty in walking, not elsewhere classified Status: Acute (3) Generalized weakness: Code(s): R53.1 - Weakness Status: Acute DS: Summary Hospital Course Reason for hospitalization: Deconditioning Hospital Course: This is a 74-year-old female who is a fair historian. Unclear of her medical history other than allergies and lower back pain. She was found by social media designer at home stuck on her couch blocked in by another chair. Patient reports she has been trying for days to get out. She has chronic low back pain from an old fall at work. She reports it was burning a bit during urination as well. She otherwise has no complaints on comprehensive review systems. Her evaluation revealed WBC 11.8, hemoglobin 9.4, potassium 3.3. She received KCl replacement 40 mEq. Magnesium check is pending. Creatinine kinase 38. Urinalysis positive for 3-5 RBC, trace ketones, 2+ protein. Tylenol p.r.n., lidocaine patch for dorsalgia. PT OT evaluations pending. Trend hypokalemia, leukocytosis. No evidence of infection. Patient would like to be full code. Saline lock IV. Regular diet. Admitted on 11/22/2024 for weakness and failure to thrive. Care coordination was consulted regarding possible SNF placement. Care coordination initiated this process on 11/22 and the patient was subsequently accepted at [facility], [place], operated by [facility] the SNF on 11/23. Patient does not have an elevated WBC on 11/23. Urinalysis not indicative of UTI. No major electrolyte abnormalities. Vital signs are stable. Patient is otherwise hemodynamically stable and can be discharged to [facility] at this time. Time Spent with Patient Time attestation: Total time spent providing and/or coordinating discharge services: Exam Const: Other: A&O x3 Neuro: Other: Globally weak. DS: Data Data Completed and Pending Labs on day of discharge: Labs from last 24 hours 11/23/24 11/22/24 05:30 10:59 WBC 10.0 RBC 3.96 L Hgb 8.6 L Hct 31.6 L MCV 79.8 L MCH 21.7 L MCHC 27.2 L RDW 20.7 H Plt Count 261 MPV 9.6 Immature Gran % (Auto) 0.4 Neut % (Auto) 64.8 Lymph % (Auto) 17.8 L [place] % (Auto) 11.7 H Eos % (Auto) 4.8 H Baso % (Auto) 0.5 Lymph # (Auto) 1.78 [place] # (Auto) 1.2 H Eos # (Auto) 0.5 H Baso # (Auto) 0.1 Abs Immat Gran (auto) 0.04 H Absolute Neuts (auto) 6.5 Absolute Nucleated RBC 0.000 Band Neutrophils % Not Reportable Nucleated RBC % 0.0 Platelet Estimate Adequate Hypochromasia 1+ Anisocytosis 1+ Schistocytes None seen Sodium 138 Potassium 3.6 Chloride 106 Carbon Dioxide 24 Anion Gap 8 BUN 13 Creatinine 1.08 H Estim Creat Clear Calc 46 Estimated GFR 49 L Glucose 101 Calcium 9.7 Magnesium 1.6 1.8 Discharge Plan Discharge Attending physician on discharge: Karl Trejo Consulting providers: Eliot Paulino Discharging Clinician: Eliot Paulino Anticipated Discharge Date/Time: 11/23/24 13:19 Patient Disposition: SNF Activity: as tolerated Diet: heart healthy Discharge Instructions: Discharge disposition: [facility], stable Take medications as prescribed Monitor blood pressures Take caution while standing, rising, or moving Change positions slowly taking a break between each position change If you standing feel dizzy sit back down and take a break Encouraged to continue with yearly vaccinations Return to the emergency department if he developed sudden shortness of breath, chest pain, nausea, vomiting, upset stomach or intractable diarrhea Return to the emergency department if you develop fever greater than 101.5 Follow-up with the primary care physician within 1-2 weeks Thank you for [facility] for your healthcare needs Patient Language: Danish Stand Alone Forms: General Discharge Information Follow-up/Referrals: UNKNOWN,DOCTOR [Primary Care Provider] - Discharge Medications: Continued diphenhydramine HCl [Allergy (diphenhydramine)] See Rx Instructions .ROUTE .COMPLEX PRN (Reason: allergy symptoms) Patient Comments: patient states she takes 4 pills unknown dosages Rx Instructions: unknown dosage PRN; Date of admission: 11/22/24 18:06 Primary Care Provider: UNKNOWN,DOCTOR Admitting Provider: Karl Trejo Attending physician on admission: Karl Trejo Condition: Stable
[2024-11-23 13:51] VITALS: BP 118/99; PULSE 79; RESP 17; TEMP 35.6; O2SAT 99
[2024-11-23 20:00] VITALS: PULSE 79; RESP 18; O2SAT 100
[2024-11-23 21:00] VITALS: PULSE 80; RESP 16; O2SAT 96
[2024-11-23 21:28] VITALS: BP 149/62; PULSE 79; RESP 18; TEMP 36.4; O2SAT 100
[2024-11-24 05:25] VITALS: BP 128/67; PULSE 79; RESP 16; TEMP 36.5; O2SAT 99
[2024-11-24] MEDS: LIDOCAINE 5% PATCH 1 PATCH TRANSDERM (09:40)
--- NOTE | 2024-11-24 13:31 | P.PNIM_ITS ---
Progress Note: A&P Assessment and Plan (1) Adult failure to thrive: Code(s): R62.7 - Adult failure to thrive Status: Acute Assessment and Plan: * WBC 11.8, hemoglobin 9.4, potassium 3.3. * Received KCl replacement 40 mEq. * Magnesium and CK wnl. * Urinalysis positive for 3-5 RBC, trace ketones, 2+ protein - no urinary sxs * Tylenol p.r.n., lidocaine patch for dorsalgia. * PT OT evaluations recommend SNF vs . * Trend hypokalemia, leukocytosis. * 11/23: WBC 10.0, Hgb 8.6 * Accepted for SNF - pending insurance authorization (2) Inability to walk: Code(s): R26.2 - Difficulty in walking, not elsewhere classified Status: Acute Assessment and Plan: * See problem 1 (3) Generalized weakness: Code(s): R53.1 - Weakness Status: Acute Assessment and Plan: * See problem 1 Plan This is a 74-year-old female who is a fair historian. Unclear of her medical history other than allergies and lower back pain. She was found by health and social care teacher at home stuck on her couch blocked in by another chair. Patient reports she has been trying for days to get out. She has chronic low back pain from an old fall at work. She reports it was burning a bit during urination as well. She otherwise has no complaints on comprehensive review systems. Her evaluation revealed WBC 11.8, hemoglobin 9.4, potassium 3.3. She received KCl replacement 40 mEq. Magnesium check is pending. Creatinine kinase 38. Urinalysis positive for 3-5 RBC, trace ketones, 2+ protein. Tylenol p.r.n., lidocaine patch for dorsalgia. PT OT evaluations pending. Trend hypokalemia, leukocytosis. No evidence of infection. Patient would like to be full code. Saline lock IV. Regular diet. Admitted on 11/22/2024 for weakness and failure to thrive. Subjective Date/time seen: 11/24/24 13:31 Interval history: 74-year-old female who is a fair historian. Unclear of her medical history other than allergies and lower back pain. She was found by health and social care teacher at home stuck on her couch blocked in by another chair. 11/24/2024 Patient sitting comfortably in bed at time examination. Denies any chest pain, shortness a breath, nausea/vomiting or abdominal pain at this time. Patient was accepted for SNF yesterday but original insurance was incorrect and authorization had to be sent again. We are continuing to wait for authorization for discharge at this time. No other comments or concerns. Review of Systems Review of Systems: All systems reviewed & are unremarkable except as noted in HPI and below Exam Narrative: Gen - ill appearing male in no acute respiratory distress who is nontoxic- appearing lying semi recumbent in bed HEENT - normocephalic. Pupils equal round and reactive. Nares patent. Oropharynx was clear. No oral lesions. Moist mucous membranes. Tongue was midline. Neck - neck was supple. No dominant adenopathy, thyromegaly or masses. Chest - lungs are clear to auscultation bilaterally. No wheezes or crackles. CV - heart was regular rate and rhythm. S1-S2. Abd - abdomen was soft. Nontender. Nondistended. Positive bowel sounds. No organomegaly or masses. Ext - no clubbing, cyanosis or edema. 2+ DP pulses bilaterally. Neuro - patient is alert and oriented x4. Strength is 5/5 in both upper and lower extremities. Cranial nerves 2-12 are intact. Speech is clear. Psych - normal mood and affect. Patient is pleasant and cooperative. Skin - warm and dry. No rashes noted. Const: Other: A&O x3 Neuro: Other: Globally weak. Objective Data Vital Signs Vital Signs: Vital Signs - 24 hr 11/23/24 13:51 11/23/24 20:00 11/23/24 21:00 Temperature 96.1 F L Pulse Rate 79 79 80 Respiratory Rate 17 18 16 Blood Pressure 118/99 H Pulse Oximetry 99 100 96 Oxygen Delivery Room Air Room Air 11/23/24 21:28 11/24/24 05:25 11/24/24 07:58 Temperature 97.6 F 97.7 F Pulse Rate 79 79 Respiratory Rate 18 16 Blood Pressure 149/62 H 128/67 Pulse Oximetry 100 99 Oxygen Delivery Room Air Intake/Output Intake/Output: Intake & Output 11/21/24 11/22/24 11/23/24 11/24/24 23:59 23:59 23:59 23:59 Intake Total 956 420 Output Total 200 400 Balance -200 956 20 Meds/Results Medications: Active Medications Generic Name Dose Route Start Last Admin Trade Name Freq PRN Reason Stop Dose Admin Acetaminophen 650 mg 11/22/24 21:00 11/23/24 03:00 Acetaminophen 325 Mg Tablet PO 650 mg Q4H PRN Administration Mild Pain (1-3) or Fever Lidocaine 1 patch 11/22/24 21:05 11/24/24 09:40 Lidocaine 5% Patch TRANSDERM 1 patch DAILY NIEVES Administration
[2024-11-24 14:10] LABS: Hematocrit 34.6 % (37.0-47.0); Hemoglobin 9.4 g/dL (12.0-15.0); Immature Granulocyte Percent A 0.3 % (0-0.5); Lymphocytes Absolute Auto 1.23 K/mm3 (0.9-3.2); Mean Corpuscular HGB Conc 27.2 g/dl (32-36); Mean Corpuscular Hemoglobin 21.7 pg (26-34); Mean Corpuscular Volume 79.7 fl (80-100); Nucleated Red Blood Cells Absolute Auto 0.000 K/mm3 (0.0-0.012); Nucleated Red Blood Cells Perc 0.0 % (0.0-0.2); Platelet Count Result 311 k/mm3 (150-375); Red Blood Count 4.34 M/mm3 (4.2-5.4); White Blood Count 8.7 K/mm3 (4.5-10.0)
[2024-11-24 14:14] VITALS: BP 114/82; PULSE 79; RESP 18; TEMP 36.3; O2SAT 100
[2024-11-24 14:29] LABS: Alanine Aminotransferase 15 U/L (6-35); Albumin Level 4.1 g/dL (3.5-5.1); Alkaline Phosphatase 116 U/L (38-126); Anion Gap 11 mmol/L (4-12); Aspartate Amino Transferase 25 U/L (14-36); Bilirubin,Total 0.6 mg/dL (0.2-1.3); Blood Urea Nitrogen 15 mg/dL (7-17); Calcium 9.6 mg/dL (8.4-10.2); Carbon Dioxide 24 mmol/L (22-30); Chloride 104 mmol/L (98-107); Estimated CRCL calculation 49 ml/min; Estimated Glomerular Filt Rate 53; Glucose 160 mg/dL (65-110); Potassium 3.9 mmol/L (3.4-5.0); Sodium 139 mmol/L (137-145); Total Protein 8.0 g/dL (6.3-8.2)
[2024-11-24 14:46] LABS: Anisocytosis 2+; Microcytosis 1+ (NORMAL); Schistocytes None Seen
[2024-11-24 14:49] LABS: Band Neutrophils Percent 0 % (0-6); Hypochromasia 1+
[2024-11-24] MEDS: ACETAMINOPHEN 325 MG TABLET 650 MG PO (20:04)
[2024-11-24 20:57] VITALS: O2SAT 99
[2024-11-24 21:40] VITALS: BP 131/62; PULSE 75; RESP 20; TEMP 36.3; O2SAT 99
[2024-11-25 05:46] VITALS: BP 130/53; PULSE 79; RESP 16; TEMP 36.5; O2SAT 98
[2024-11-25] MEDS: LIDOCAINE 5% PATCH 1 PATCH TRANSDERM (08:30)
--- NOTE | 2024-11-25 09:48 | PM.DS ---
DS: Admitting Diagnosis Discharge Date 11/25/2024 Admitting Diagnosis Failure to thrive DS: Discharge Diagnosis Discharge Diagnosis (1) Adult failure to thrive: Code(s): R62.7 - Adult failure to thrive Status: Acute (2) Inability to walk: Code(s): R26.2 - Difficulty in walking, not elsewhere classified Status: Acute (3) Generalized weakness: Code(s): R53.1 - Weakness Status: Acute DS: Summary Hospital Course Reason for hospitalization: Deconditioning Hospital Course: This is a 74-year-old female who is a fair historian. Unclear of her medical history other than allergies and lower back pain. She was found by executive secretary social welfare at home stuck on her couch blocked in by another chair. Patient reports she has been trying for days to get out. She has chronic low back pain from an old fall at work. She reports it was burning a bit during urination as well. She otherwise has no complaints on comprehensive review systems. Patient remained hemodynamically stable throughout hospitalization. CK within normal limits. Blood work and vital signs remained unremarkable and patient did not any complaints or concerns. Patient did have a slightly elevated WBC upon admission but this resolved over the next few days. PT/OT was consulted regarding decreased ability. Patient was able to see them twice during hospitalization and upon last assessment, patient did not complain of any pain and was able to complete transfers with CGA and gait with minimal assistance. Gait distance increased but remains limited due to insurance and muscle weakness. independent agent music education was consulted regarding SNF versus home health placement given progressively worsening ability to function independently. Patient was accepted [facility] and authorization was confirmed. Plan for discharge to SNF at this time. Status at Discharge Functional status at discharge: independent ambulation Overall status at discharge: patient is progressing back to baseline Time Spent with Patient Time attestation: Total time spent providing and/or coordinating discharge services: 35 Exam Narrative: Gen - ill appearing male in no acute respiratory distress who is nontoxic-appearing lying semi recumbent in bed HEENT - normocephalic. Pupils equal round and reactive. Nares patent. Oropharynx was clear. No oral lesions. Moist mucous membranes. Tongue was midline. Neck - neck was supple. No dominant adenopathy, thyromegaly or masses. Chest - lungs are clear to auscultation bilaterally. No wheezes or crackles. CV - heart was regular rate and rhythm. S1-S2. Abd - abdomen was soft. Nontender. Nondistended. Positive bowel sounds. No organomegaly or masses. Ext - no clubbing, cyanosis or edema. 2+ DP pulses bilaterally. Neuro - patient is alert and oriented x4. Strength is 5/5 in both upper and lower extremities. Cranial nerves 2-12 are intact. Speech is clear. Psych - normal mood and affect. Patient is pleasant and cooperative. Skin - warm and dry. No rashes noted. Const: Other: A&O x3 Neuro: Other: Globally weak. DS: Data Data Completed and Pending Labs on day of discharge: Labs from last 24 hours 11/24/24 13:56 WBC 8.7 RBC 4.34 Hgb 9.4 L Hct 34.6 L MCV 79.7 L MCH 21.7 L MCHC 27.2 L RDW 20.9 H Plt Count 311 MPV 9.4 Immature Gran % (Auto) 0.3 Neut % (Auto) 71.5 Lymph % (Auto) 14.1 L [place] % (Auto) 7.8 Eos % (Auto) 5.6 H Baso % (Auto) 0.7 Lymph # (Auto) 1.23 [place] # (Auto) 0.7 H Eos # (Auto) 0.5 H Baso # (Auto) 0.1 Abs Immat Gran (auto) 0.03 Absolute Neuts (auto) 6.2 Absolute Nucleated RBC 0.000 Band Neutrophils % 0 Nucleated RBC % 0.0 Platelet Estimate Adequate Hypochromasia 1+ Anisocytosis 2+ Microcytosis 1+ Schistocytes None seen Sodium 139 Potassium 3.9 Chloride 104 Carbon Dioxide 24 Anion Gap 11 BUN 15 Creatinine 1.01 H Estim Creat Clear Calc 49 Estimated GFR 53 L Glucose 160 H Calcium 9.6 Total Bilirubin 0.6 AST 25 ALT 15 Alkaline Phosphatase 116 Total Protein 8.0 Albumin 4.1 Discharge Plan Discharge Attending physician on discharge: Mely Barraza Consulting providers: Eliot Paulino Discharging Clinician: Eliot Paulino Anticipated Discharge Date/Time: 11/25/24 09:47 Patient Disposition: SNF Activity: as tolerated Diet: heart healthy Discharge Instructions: Discharge disposition: [facility], stable Take medications as prescribed Monitor blood pressures Take caution while standing, rising, or moving Change positions slowly taking a break between each position change If you standing feel dizzy sit back down and take a break Encouraged to continue with yearly vaccinations Return to the emergency department if he developed sudden shortness of breath, chest pain, nausea, vomiting, upset stomach or intractable diarrhea Return to the emergency department if you develop fever greater than 101.5 Follow-up with the primary care physician within 1-2 weeks Thank you for choosing [facility] for your healthcare needs Patient Language: Syriac Stand Alone Forms: General Discharge Information Follow-up/Referrals: UNKNOWN,DOCTOR [Primary Care Provider] - Discharge Medications: Discontinued diphenhydramine HCl [Allergy (diphenhydramine)] See Rx Instructions .ROUTE .COMPLEX PRN (Reason: allergy symptoms) Patient Comments: patient states she takes 4 pills unknown dosages Rx Instructions: unknown dosage PRN; Date of admission: 11/22/24 18:06 Primary Care Provider: UNKNOWN,DOCTOR Admitting Provider: Karl Trejo Attending physician on admission: Karl Trejo Condition: Stable
== END 2024-11-25 14:30 ==
LOC: ANHED 18:03 → ANH3MEDSUR 11-23 11:06
PROVIDERS: General Practice; Physician Assistant; Admitting Provider Internal Medicine; Emergency Provider Emergency Medicine; Visit Provider Internal Medicine
DX: R53.1 Weakness (principal); R62.7 Adult failure to thrive; Z68.36 Body mass index [BMI] 36.0-36.9, adult; R26.2 Difficulty in walking, not elsewhere classified; M54.50 Low back pain, unspecified; G89.29 Other chronic pain; Z91.81 History of falling; Z79.899 Other long term (current) drug therapy; Z88.8 Allergy status to other drugs, medicaments and biological substances
CPT/HCPCS: 36415; 80048; 80053; 81001; 82550; 83735; 85025; 93005; 97110; 97116; 97161; 97165; 97530; 97535; 99212; 99285; A9270; G0378; G0463

== ENCOUNTER 2025-02-28 11:04 | Observation (INO) | payer OTHER, SELFPAY ==
--- NOTE | ~2025-02-28 | CT_ITS ---
EXAMINATION: CT cervical spine wo con DATE: 02/28/2025 12:49 INDICATION: Unwitnessed fall TECHNIQUE: Computed tomography (CT) of the cervical spine was performed without intravenous contrast. Automated exposure control and iterative reconstruction technique were employed. The dose-length product was 350.10 mGy-cm. COMPARISON: 03/15/2006 FINDINGS: 15 degrees cervicothoracic dextrocurvature. Reversal of the normal cervical lordosis. 2 mm retrolisthesis C5 on C6. Severe osteoarthritis at the atlantoaxial articulation. Vertebral body heights are normal. No fracture. Severe disc height loss with prominent degenerative endplate changes and left side predominant severe bilateral uncovertebral osteoarthritis at C5-C6 and C6- C7. Moderate disc height loss at C7-T1 and T2-T3 and mild disc height loss at C2-C3 through C4-C5 and at T1-T2. Mild to moderate right-sided and severe left- sided uncovertebral osteoarthritis at C7-T1 and mild uncovertebral osteo arthritis at a few additional more cephalad cervical levels. Severe facet osteoarthritis on the right at C2-C3, bilaterally at C3-C4 and on the left at C4-C5 and C5-C6. Mild to moderate facet osteoarthritis and remainder of the cervical spine. Posterior disc osteophyte complexes contribute to mild central canal stenosis at C5-C6 and C6-C7. Disc bulges contributing to mild central canal stenosis at C4-C5 and C7-T1. Moderate neural foraminal stenosis on the bilaterally at C5-C6 and C6-C7 and on the left at C7-T1 and mild neural from stenosis at many of the remaining cervical levels. Atherosclerotic coronary artery calcifications at the bilateral carotid bulbs cervical soft tissues are otherwise unremarkable. IMPRESSION: 1. 15 degrees cervicothoracic dextrocurvature scoliosis with severe spondylosis. No acute osseous abnormality. Reviewed, dictated and finalized at location A. IMPRESSION: 1. 15 degrees cervicothoracic dextrocurvature scoliosis with severe spondylosis . No acute osseous abnormality.
--- NOTE | ~2025-02-28 | XR_ITS ---
Examination: XR chest 2V Clinical History: fall, weakness Comparison: 03/15/2006 Technique: PA and Lateral Findings: Left pacemaker. Cardiomegaly. Lungs clear. Osteopenia No acute bony abnormality. Degenerative changes left glenohumeral joint, and sclerotic benign focus humeral neck. IMPRESSION: 1. No acute cardiopulmonary findings. Reviewed, dictated and finalized at location R.
--- NOTE | ~2025-02-28 | CT_ITS ---
EXAMINATION: CT brain wo con DATE: 02/28/2025 12:49 INDICATION: Unwitnessed fall TECHNIQUE: Computed tomography (CT) of the head was performed without intravenous contrast. Sagittal and coronal reconstructions were performed. The mA was adjusted according to patient size. Iterative reconstruction technique was employed. The dose-length product was 605.33 mGy-cm. COMPARISON: head CT dated 03/15/2006 FINDINGS: No fracture. 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 No acute intracranial hemorrhage, acute infarction or abnormal extra axial fluid collection. There is moderate scattered white matter hypoattenuation consistent with chronic small vessel ischemic disease. Symmetric prominence of the sulci consistent with mild age-appropriate diffuse cerebral volume loss. Ventricles are normal and symmetric. No mass/mass effect. The orbits, paranasal sinuses and mastoid air cells are normal. Krys bullosa of the right middle turbinate. IMPRESSION: 1. No fracture or acute intracranial process. 2. 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 3. Age-related changes including mild diffuse volume loss and moderate scattered white matter hypoattenuation consistent with chronic small vessel ischemic disease. Reviewed, dictated and finalized at location A. IMPRESSION: 1. No fracture or acute intracranial process. 2. 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 3. Age-related changes including mild diffuse volume loss and moderate scattere d white matter hypoattenuation consistent with chronic small vessel ischemic di sease.
--- NOTE | ~2025-02-28 | XR_ITS ---
XR ankle RT min 3V 03/01/2025 09:02 Indication: Right ankle pain Procedure: 4 views right ankle Comparison: No prior studies for comparison. Findings: There is mild degenerative change of the right ankle. Small degenerative calcaneal enthesophyte. No fracture, subluxation or dislocation. No significant soft tissue abnormality. No foreign bodies. Impression: 1: No acute bone or joint abnormality. 2: Mild polyarticular osteoarthritis. Reviewed, dictated and finalized at location O. Impression: 1: No acute bone or joint abnormality. 2: Mild polyarticular osteoarthritis.
[2025-02-28 11:13] VITALS: BP 148/67; PULSE 87; RESP 20; TEMP 36.6; O2SAT 99
--- NOTE | 2025-02-28 11:33 | ECG_ITS ---
Test Date: 2025-02-28 12:10:50 Measurements Intervals [place] Rate: 79 P: -71 MN: 92 QRS: 188 QRSD: 170 T: 66 QT: 433 QTc: 498 Interpretive Statements ELECTRONIC ATRIAL PACEMAKER ELECTRONIC VENTRICULAR PACEMAKER BASELINE ARTIFACT- I, II, III, AVR, AVL, AVF, V1-V6 NO FURTHER INTERPRETATION IS POSSIBLE ATYPICAL ECG Compared to ECG 11/22/2024 10:04:51 No significant changes Electronically Signed On 02-28-2025 13:42:47 CDT by Rah Car D.O.
--- NOTE | 2025-02-28 12:35 | ED_ITS ---
HPI - Fall General Chief Complaint: Fall Stated Complaint: weakness - fall - on ground 12 + hours Time Seen by Provider: 02/28/25 12:08 Source: patient Mode of arrival: EMS Limitations: no limitations History of Present Illness HPI Narrative: This is a 74-year-old female with history of ?heart problem? who presents the ED for a reported fall. Patient states that she is unsure what happened but she was told that she fell. Per nursing staff, they were told that patient was found by her home health nurse this morning on the ground covered in her own urine. Patient does not recall this at all. She only reports some back pain that is slightly improved at this time. Denies chest pain, shortness of breath, abdominal pain, headache, changes in vision, nausea, vomiting. Related Data Allergies Allergy/AdvReac Type Severity Reaction Status Date / Time atorvastatin Allergy Rash Verified 02/28/25 18:53 Review of Systems 2 Review of Systems: Gen.: Denies fevers or chills Eyes: Denies eye pain or visual change ENT: Denies congestion Respiratory: Denies shortness of breath or cough CV: Denies chest pain or palpitations GI: Denies abdominal pain nausea, emesis or diarrhea denies burning, urgency, frequency or hematuria Musculoskeletal: As per HPI Neuro: Denies numbness, tingling, weakness or focal weakness Skin: Denies rash Except as documented, all other systems reviewed and negative [facility] Social History Social History Smoking packs per day: 1 Smoking cigarettes per day: 20.0 Smoking status: Former smoker Tobacco type: cigarettes Alcohol intake: never Substance use: never Substance use type: does not use Do You Feel Safe in your Home?: Yes Lack of Transportation: YES Lack of Food: Sometimes True Current Housing: I Have Housing Concerned About Future Housing: YES Difficulty Paying Gas/Electric Bills: No Difficulty Paying for Meds: No Currently Unemployed: No Education: Grade School Difficulty w/ Childcare or Family Care: No Spiritual care concerns: Yes Exam 2 Narrative: APPEARANCE: Unkempt, smells of urine. No acute distress, nontoxic, resting in bed EYES: EOMI HEENT: Normocephalic, atraumatic, OMM RESPIRATORY: No respiratory distress Clear to auscultation bilaterally with no rhonchi wheezing or rales. CARDIOVASCULAR: Regular rate and rhythm without murmurs rubs or gallops. ABDOMINAL: Obese. Soft, nontender, nondistended, no rebound or guarding MUSCULOSKELETAl: Moves all extremities. No clubbing, cyanosis or edema. NEURO: Somnolent but easily arousable to voice. Following commands, speech normal, no focal deficits SKIN:: Warm, dry. No rashes lesions or abrasions PSYCHIATRIC: Normal affect/mood, Course Vital Signs Vital signs: Vital Signs Temperature 97.9 F 02/28/25 11:13 Pulse Rate 87 02/28/25 11:13 Respiratory Rate 20 02/28/25 11:13 Blood Pressure 148/67 H 02/28/25 11:13 Pulse Oximetry 99 02/28/25 11:13 Oxygen Delivery Room Air 02/28/25 11:13 Temperature 97.7 F 02/28/25 18:31 Pulse Rate 79 02/28/25 18:31 Respiratory Rate 18 02/28/25 18:31 Blood Pressure 124/64 02/28/25 18:31 Pulse Oximetry 95 02/28/25 18:31 Oxygen Delivery Room Air 02/28/25 18:58 MDM - Fall MDM Narrative Medical decision making narrative: 74-year-old female presenting for possible fall he an unknown down time. On initial evaluation, patient was in no acute distress, afebrile, hemodynamically stable. She did smell of urine. She was reporting upper back pain. There is no focal tenderness. Heart and lungs clear. She had a leukocytosis at 13.4. Mild anemia 9.8 which is her baseline. CMP without significant abnormalities. CK slightly elevated at 390. CRP elevated at 6.6. UA not consistent UTI. patient was beginning to complain severe thoracic back pain so she was given morphine, Toradol, Dilaudid with no significant relief. Patient will be admitted for intractable back pain with failure to thrive. Given the white count and mild lactic acidosis, she will be covered with Zosyn for possible infection. Case was discussed with hospitalist who will admit the patient. Differential Diagnosis Differential diagnosis: Likely syncope and other (CVA, rhabdomyolysis, electrolyte abnormality, renal failure) Medical Records Attestation: I reviewed the patient's medical records. Lab Data Attestation: I reviewed the patient's lab results. 02/28/25 14:11 02/28/25 14:11 Labs: Lab Results 02/28/25 02/28/25 Range/Units 13:48 14:11 WBC 13.4 H (4.5-10.0) K/mm3 RBC 4.47 (4.2-5.4) M/mm3 Hgb 9.8 L (12.0-15.0) g/dL Hct 36.0 L (37.0-47.0) % MCV 80.5 (80-100) fl MCH 21.9 L (26-34) pg MCHC 27.2 L (32-36) g/dl RDW 20.6 H (11.5-14.5) % Plt Count 339 (150-375) k/mm3 MPV 8.9 (7.4-10.4) fl Immature Gran % (Auto) 0.4 (0-0.5) % Neut % (Auto) 78.3 H (45.5-73.1) % Lymph % (Auto) 6.8 L (18.3-44.2) % [place] % (Auto) 11.0 H (2.6-8.5) % Eos % (Auto) 2.9 (0-4.4) % Baso % (Auto) 0.6 (0.2-1.2) % Lymph # (Auto) 0.91 (0.9-3.2) K/mm3 [place] # (Auto) 1.5 H (0.1-0.6) K/mm3 Eos # (Auto) 0.4 H (0-0.3) K/mm3 Baso # (Auto) 0.1 (0.0-0.1) K/mm3 Abs Immat Gran (auto) 0.06 H (0.00-0.031) K/mm3 Absolute Neuts (auto) 10.5 H (1.3-6.7) K/mm3 Absolute Nucleated RBC 0.000 (0.0-0.012) K/mm3 Band Neutrophils % 0 (0-6) % Nucleated RBC % 0.0 (0.0-0.2) % Platelet Estimate Adequate (Adequate) Hypochromasia 1+ Anisocytosis 3+ Schistocytes None seen PT 15.3 H (11.1-14.7) Seconds INR 1.2 APTT 30.0 (22.3-36.8) Seconds Sodium 142 (137-145) mmol/L Potassium 3.9 (3.4-5.0) mmol/L Chloride 106 (98-107) mmol/L Carbon Dioxide 25 (22-30) mmol/L Anion Gap 11 (4-12) mmol/L BUN 25 H D (7-17) mg/dL Creatinine 1.02 H (0.7-1.0) mg/dL Estim Creat Clear Calc 47 ml/min Estimated GFR 53 L (59 - ) Glucose 97 (65-110) mg/dL Lactic Acid 2.5 H (0.7-2.0) mmol/L Calcium 9.8 (8.4-10.2) mg/dL Total Bilirubin 1.0 (0.2-1.3) mg/dL AST 31 (14-36) U/L ALT 20 (6-35) U/L Alkaline Phosphatase 156 H (38-126) U/L Total Creatine Kinase 390 H (30-135) U/L Troponin I 0.022 (0.000-0.034) ng/mL C-Reactive Protein 6.6 H (<1.0) mg/dL Total Protein 7.5 (6.3-8.2) g/dL Albumin 3.7 (3.5-5.1) g/dL Urine Color Yellow (Yellow) Urine Appearance Clear (Clear) Urine pH 6.5 (5.0-9.0) Ur Specific [place] 1.018 (1.001-1.035) Urine Protein 2+ H (Negative) mg/dL Urine Glucose (UA) Negative (Negative) mg/dL Urine Ketones Trace H (Negative) mg/dL Ur Blood (Man) Negative (Negative) Urine Nitrate Negative (Negative) Urine Bilirubin Negative (Negative) Urine Urobilinogen 1.0 (<2.0) mg/dL Leukocyte Esterase Rfl 1+ H (Negative) MICHAEL/UL Urine RBC 3-5 H (0-2) /hpf Urine WBC 6-10 H (0-3) /hpf Ur Squamous Epith Cells None seen (Few) /hpf Urine Bacteria Rare /hpf Urine Casts 0-2 Imaging Data Attestation: I personally reviewed and interpreted this imaging study as follows: Radiologist's impression: Impressions Chest X-Ray 02/28/25 11:48 IMPRESSION: 1. No acute cardiopulmonary findings. Head CT 02/28/25 12:50 IMPRESSION: 1. No fracture or acute intracranial process. 2. 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 3. Age-related changes including mild diffuse volume loss and moderate scattered white matter hypoattenuation consistent with chronic small vessel ischemic disease. Cervical Spine CT 02/28/25 13:38 IMPRESSION: 1. 15 degrees cervicothoracic dextrocurvature scoliosis with severe spondylosis. No acute osseous abnormality. ECG Data EKG #1: Attestation: I personally reviewed and interpreted this ECG as follows: ECG completion date: 02/28/25 ECG completion time: 12:10 Interpretation: Electronic atrial pacemaker, electronic ventricular pacemaker, does not meet Sgarbossa criteria for STEMI Discharge Plan Discharge Clinical Impression: Adult failure to thrive, Intractable back pain Patient Disposition: Still a Patient Condition: Stable
[2025-02-28 14:02] LABS: Add Urine Microscopic? YES; Appearance Urine Clear (Clear); Glucose Urine UA Negative (Negative); Leukocyte Esterase Ur 1+ LEU/UL (Negative); Nitrate Urine Negative (Negative); Non Pathogenic Casts 0-2; Specific Grav Ur 1.018 (1.001-1.035)
[2025-02-28 14:17] LABS: Hematocrit 36.0 % (37.0-47.0); Hemoglobin 9.8 g/dL (12.0-15.0); Immature Granulocyte Percent A 0.4 % (0-0.5); Lymphocytes Absolute Auto 0.91 K/mm3 (0.9-3.2); Mean Corpuscular HGB Conc 27.2 g/dl (32-36); Mean Corpuscular Hemoglobin 21.9 pg (26-34); Mean Corpuscular Volume 80.5 fl (80-100); Nucleated Red Blood Cells Absolute Auto 0.000 K/mm3 (0.0-0.012); Nucleated Red Blood Cells Perc 0.0 % (0.0-0.2); Platelet Count Result 339 k/mm3 (150-375); Red Blood Count 4.47 M/mm3 (4.2-5.4); White Blood Count 13.4 K/mm3 (4.5-10.0)
[2025-02-28 14:28] LABS: Alanine Aminotransferase 20 U/L (6-35); Albumin Level 3.7 g/dL (3.5-5.1); Alkaline Phosphatase 156 U/L (38-126); Anion Gap 11 mmol/L (4-12); Aspartate Amino Transferase 31 U/L (14-36); Bilirubin,Total 1.0 mg/dL (0.2-1.3); Blood Urea Nitrogen 25 mg/dL (7-17); Calcium 9.8 mg/dL (8.4-10.2); Carbon Dioxide 25 mmol/L (22-30); Chloride 106 mmol/L (98-107); Estimated CRCL calculation 47 ml/min; Estimated Glomerular Filt Rate 53; Glucose 97 mg/dL (65-110); Potassium 3.9 mmol/L (3.4-5.0); Sodium 142 mmol/L (137-145); Total Protein 7.5 g/dL (6.3-8.2)
[2025-02-28 14:36] LABS: INR 1.2; Prothrombin Time 15.3 Seconds (11.1-14.7)
[2025-02-28 14:40] LABS: Troponin I 0.022 ng/mL (0.000-0.034)
[2025-02-28] MEDS: SODIUM CHLORIDE 0.9% IV 1,000 ML 999 ML IV CONT (14:42)
[2025-02-28] MEDS: MORPHINE SULFATE (*CRX) 4 MG/ML INJ 2 MG IV PUSH (14:43)
[2025-02-28 14:45] VITALS: BP 151/83; PULSE 79; RESP 16; O2SAT 98
[2025-02-28 14:46] LABS: Schistocytes None Seen
[2025-02-28 14:47] LABS: Anisocytosis 3+; Band Neutrophils Percent 0 % (0-6); Hypochromasia 1+
[2025-02-28 15:07] LABS: Partial Thromboplastin Time 30.0 Seconds (22.3-36.8)
[2025-02-28 15:23] LABS: CRP 6.6 mg/dL (<1.0); Creatine Kinase 390 U/L (30-135)
[2025-02-28] MEDS: KETOROLAC 15 MG/ML VIAL (*BKC) IV PUSH (15:50)
[2025-02-28] MEDS: CYCLOBENZAPRINE HCL 10 MG TABLET PO (15:50)
[2025-02-28] MEDS: PIPERACILLIN/TAZOBACTAM SOD 4.5 GM in SODIUM CHLORIDE 0.9% IV 100 ML 200 ML IVPB (16:02)
--- NOTE | 2025-02-28 16:32 | P.HP_ITS ---
H&P: HPI History of Present Illness Date/Time: 02/28/25 16:32 Chief Complaint: Fall Narrative: 74-year-old female with a past medical history of back pain and falls presents to the ED on 02/28/2025 with complaints of a fall at home. Patient was found by her family service worker this morning on the floor covered in her urine and feces. Patient is unsure how she fell or how long she was down for. Her family service worker comes Friday through Friday. Patient's only complaint is some back pain on arrival to the ED. Denies chest pain, cough, shortness of breath, abdominal pain, headache, changes in vision, nausea or vomiting. Patient afebrile and hemodynamically stable on presentation. Strong smell of urine and fecal matter. No tenderness. Leukocytosis at 13.4. Patient's baseline anemia. No significant abnormalities on CMP. CK elevated at 390. CRP 6.6. UA with no signs of UTI. Complaining of severe back pain Chest x-ray with no acute abnormalities. Head CT with no acute findings, age-related changes, and a possible old infarct. Cervical spine CT reads 15 degrees cervicothoracic dextrocurvature scoliosis with severe spondylosis. No acute osseous abnormality Review of Systems Review of Systems: All systems reviewed & are unremarkable except as noted in HPI and below PMFSH Social History Social History Smoking packs per day: 1 Smoking cigarettes per day: 20.0 Smoking status: Former smoker Tobacco type: cigarettes Alcohol intake: never Substance use: never Substance use type: does not use Do You Feel Safe in your Home?: Yes Lack of Transportation: YES Lack of Food: Sometimes True Current Housing: I Have Housing Concerned About Future Housing: YES Difficulty Paying Gas/Electric Bills: No Difficulty Paying for Meds: No Currently Unemployed: No Education: Grade School Difficulty w/ Childcare or Family Care: No Spiritual care concerns: Yes Meds Home Medications and Allergies Home Medications ?Medication ?Instructions ?Recorded ?Confirmed ?Type trazodone 50 mg tablet mg 02/28/25 History Allergies Allergy/AdvReac Type Severity Reaction Status Date / Time atorvastatin Allergy Rash Verified 02/28/25 18:53 Vital Signs Vital Signs - 24 hr 02/28/25 11:13 02/28/25 14:45 Temperature 97.9 F Pulse Rate 87 79 Respiratory Rate 20 16 Blood Pressure 148/67 H 151/83 H Pulse Oximetry 99 98 Oxygen Delivery Room Air Exam Narrative: GENERAL: non-toxic appearing, in no acute distress. Unkempt HEAD: Normocephalic, atraumatic. EYES: PERRLA. Conjunctivae clear. NOSE: Normal no drainage. THROAT: Pharynx clear, no exudate. NECK: Trachea midline. No adenopathy, no masses. RESPIRATORY: Airway patent, respirations nonlabored. CTA. CARDIOVASCULAR: Regular rate and rhythm without murmurs, rubs, or gallops. BREASTS: Defer GASTROINTESTINAL: Abdomen is soft and nontender. No organomegaly. Bowel sounds normal in all quadrants. GENITOURINARY: Defer MUSCULOSKELETAL: Moves all extremities. No gross deformities. No calf tenderness. SKIN: Warm, dry, normal color. NEURO: A&O X4. Speech clear PSYCHIATRIC: Normal interaction. Poor historian H&P: Results Labs Labs: Short CBC 02/28/25 Range/Units 14:11 WBC 13.4 H (4.5-10.0) K/mm3 Hgb 9.8 L (12.0-15.0) g/dL Hct 36.0 L (37.0-47.0) % Plt Count 339 (150-375) k/mm3 BMP 02/28/25 14:11 Sodium 142 Potassium 3.9 Chloride 106 Carbon Dioxide 25 BUN 25 H D Creatinine 1.02 H Glucose 97 Calcium 9.8 Cardiac Enzymes 02/28/25 Range/Units 14:11 Total Creatine Kinase 390 H (30-135) U/L Troponin I 0.022 (0.000-0.034) ng/mL Liver Function 02/28/25 Range/Units 14:11 Total Bilirubin 1.0 (0.2-1.3) mg/dL AST 31 (14-36) U/L ALT 20 (6-35) U/L Alkaline Phosphatase 156 H (38-126) U/L Albumin 3.7 (3.5-5.1) g/dL Urine 02/28/25 Range/Units 13:48 Urine Color Yellow (Yellow) Urine Appearance Clear (Clear) Urine pH 6.5 (5.0-9.0) Ur Specific [place] 1.018 (1.001-1.035) Urine Protein 2+ H (Negative) mg/dL Urine Glucose (UA) Negative (Negative) mg/dL Assessment and Plan Assessment and plan (1) Intractable back pain: Code(s): M54.9 - Dorsalgia, unspecified Status: Acute Assessment and Plan: No acute findings on imaging. -treated with hydromorphone, cyclobenzaprine, Toradol, morphine -acetaminophen p.r.n. -[place] p.r.n. (2) Elevated CK: Code(s): R74.8 - Abnormal levels of other serum enzymes Status: Acute Assessment and Plan: Patient found down for an unknown amount of time. CK 390 on admit. -1 L bolus given -trend CK and renal function (3) Leukocytosis: Qualifiers: Leukocytosis type: unspecified Qualified Code(s): D72.829 - Elevated white blood cell count, unspecified Code(s): D72.829 - Elevated white blood cell count, unspecified Status: Acute Assessment and Plan: WBC 13.4 on admit. CRP 6.6 No clear source with clear imaging and UA. Afebrile -trend CBC and CRP -Zosyn for coverage (4) Adult failure to thrive: Code(s): R62.7 - Adult failure to thrive Status: Acute Assessment and Plan: Found down at home by caregiver. Unclear downtime. Documented history of falls. -PT/OT eval Plan Diet: Regular GI prophylaxis: NA DVT prophylaxis: SCDs lines/drains: PIV Fluids: 1 L NS Code status: Full Quality VTE Prophylaxis VTE prophylaxis: mechanical ordered Hospitalist MIPS Advance Care Plan I have confirmed that the patient's Advanced Care Plan is present, code status is documented, or surrogate decision maker is listed in patient medical record.: Yes Medication Reconciliation I have utilized all available resources to obtain, update and review the patients current medications (includes all prescriptions, OTC, herbals, cannabis, and nutritional supplements).: Yes
[2025-02-28 17:08] VITALS: BP 136/62; PULSE 79; RESP 17; O2SAT 97
[2025-02-28 17:59] VITALS: BP 134/61; PULSE 82; RESP 19; O2SAT 96
[2025-02-28] MEDS: HYDROmorphone HCL INJ (*CRX) 1 MG/ML SYR 0.5 MG IV PUSH (18:08)
--- NOTE | 2025-02-28 18:26 | ADMGEN ---
This patient, Kami Egan, was admitted to 3 [facility] Surg Room 333-01. Patient/family oriented to hospital policies and general routines including ID bracelet, bed and alarms, visiting hours, pain management, procedures, bathroom and other care routines, personal items, smoking policy, room service/diet, and visiting hours. Information on how to activate the Rapid Response Team has been discussed. Patient/Family are encouraged to report perceived risks to care and to ask questions if they do not understand what they are told or what they should do.
[2025-02-28 18:27] VITALS: BMI 37.5
[2025-02-28 18:31] VITALS: BP 124/64; PULSE 79; RESP 18; TEMP 36.5; O2SAT 95
[2025-02-28 22:00] VITALS: BP 133/55; PULSE 79; RESP 18; TEMP 36.6; O2SAT 91
--- NOTE | 2025-02-28 22:43 | PC.NURSE ---
pt medications are unable to be verified. this nurse asked pt what medications she takes and she doesn't remember call placed to pt caregiver Susana and she states pt hasn't been to Dr in over 2 years and takes meds over the counter but she is unsure what she takes besides a sleeping pill (trazodone).
[2025-03-01] MEDS: HYDROcodone/acetaminophen (*CRX) 5-325 MG TABLET 1 TAB PO ×2 (05:10→17:03)
--- NOTE | 2025-03-01 05:34 | PC.NURSE ---
pt noted tonot have than urinated all night. blasdder scan and got 453ml straight cath 300
[2025-03-01 06:00] VITALS: BP 137/54; PULSE 79; RESP 17; TEMP 36.8; O2SAT 93
[2025-03-01 07:12] LABS: Creatine Kinase 241 U/L (30-135)
--- NOTE | 2025-03-01 07:34 | P.PNIM_ITS ---
Progress Note: A&P Assessment and Plan (1) Intractable back pain: Code(s): M54.9 - Dorsalgia, unspecified Status: Acute Assessment and Plan: No acute findings on imaging. -treated with hydromorphone, cyclobenzaprine, Toradol, morphine in ER -acetaminophen p.r.n. -[place] p.r.n. - will add prn dilaudid for severe pain. (2) Elevated CK: Code(s): R74.8 - Abnormal levels of other serum enzymes Status: Acute Assessment and Plan: -- > Patient found down for an unknown amount of time. does not remember falling. CK 390 on admit. -1 L bolus given -trend CK --390--241 - trend renal function (3) Leukocytosis: Qualifiers: Leukocytosis type: unspecified Qualified Code(s): D72.829 - Elevated white blood cell count, unspecified Code(s): D72.829 - Elevated white blood cell count, unspecified Status: Acute Assessment and Plan: WBC 13.4 on admit. CRP 6.6 No clear source with clear imaging and UA. Afebrile -trend CBC and CRP -Zosyn for coverage (4) Adult failure to thrive: Code(s): R62.7 - Adult failure to thrive Status: Acute Assessment and Plan: Found down at home by caregiver. Unclear downtime. - Documented history of falls. -PT/OT eval and treat Plan Diet: Regular GI prophylaxis: NA DVT prophylaxis: SCDs lines/drains: PIV Fluids: 1 L NS Code status: Full Disposition - will continue with PT/OT eval and treatment, will trend labs and pain. possible discharge with home health vs rehab placement. will monitor Time Spent With Patient Time with patient: Greater than 35 minutes Subjective Date/time seen: 03/01/25 07:34 Interval history: 74-year-old female with a past medical history of back pain and falls presents to the ED on 02/28/2025 with complaints of a fall at home. Patient was found by her staff home therapy rn yesterday morning on the floor covered in her urine and feces. Patient was unsure how she fell or how long she was down for. Her worker does work Friday through Friday. Patient's only complaint was some back pain on arrival to the ED. patient denied chest pain, cough, shortness of breath, abdominal pain, headache, changes in vision, nausea or vomiting. ER work up noted patient was afebrile and hemodynamically stable on presentation. Patient had a strong smell of urine and fecal matter. No tenderness. Leukocytosis at 13.4. Patient's baseline anemia. No significant abnormalities on CMP. CK elevated at 390. CRP 6.6. UA with no signs of UTI. Complaining of severe back pain. Chest x-ray with no acute abnormalities. Head CT with no acute findings, age-related changes, and a possible old infarct. Cervical spine CT reads 15 degrees cervicothoracic dextrocurvature scoliosis with severe spondylosis. No acute osseous abnormality patient was given pain management and 1 liter IV fluids. Patient was admitted for further management. Day#1 Patient is sitting up in bed today. Reports continued pain in her lower back, she reported pain in her right lateral ankle with movement today, no further pain in the ankle. patient reports she does not remember falling but she does remember not being able to get off the floor. patient reports no chest pain, shortness of breath, N/V/D, headache or distress. Ankle xray negative for acute abnormality Review of Systems Review of Systems: All systems reviewed & are unremarkable except as noted in HPI and below Exam Narrative: GENERAL: non-toxic appearing, in no acute distress. Unkempt HEAD: Normocephalic, atraumatic. EYES: PERRLA. Conjunctivae clear. NOSE: Normal no drainage. THROAT: Pharynx clear, no exudate. NECK: Trachea midline. No adenopathy, no masses. RESPIRATORY: Airway patent, respirations nonlabored. CTA. CARDIOVASCULAR: Regular rate and rhythm without murmurs, rubs, or gallops. BREASTS: Defer GASTROINTESTINAL: Abdomen is soft and nontender. No organomegaly. Bowel sounds normal in all quadrants. GENITOURINARY: Defer MUSCULOSKELETAL: Moves all extremities. No gross deformities. reports pain with ambulation. bilateral toe nails unkempt and overgrown, No calf tenderness. SKIN: Warm, dry, normal color. NEURO: A&O X4. Speech clear PSYCHIATRIC: Normal interaction. Poor historian Objective Data Vital Signs Vital Signs: Vital Signs - 24 hr 02/28/25 11:13 02/28/25 14:45 02/28/25 17:08 Temperature 97.9 F Pulse Rate 87 79 79 Respiratory Rate 20 16 17 Blood Pressure 148/67 H 151/83 H 136/62 Pulse Oximetry 99 98 97 Oxygen Delivery Room Air 02/28/25 17:59 02/28/25 18:31 02/28/25 18:58 Temperature 97.7 F Pulse Rate 82 79 Respiratory Rate 19 18 Blood Pressure 134/61 124/64 Pulse Oximetry 96 95 Oxygen Delivery Room Air 02/28/25 22:00 03/01/25 06:00 Temperature 97.9 F 98.2 F Pulse Rate 79 79 Respiratory Rate 18 17 Blood Pressure 133/55 L 137/54 L Pulse Oximetry 91 93 Oxygen Delivery Intake/Output Intake/Output: Intake & Output 02/26/25 02/27/25 02/28/25 03/01/25 23:59 23:59 23:59 23:59 Intake Total 1100 300 Output Total 600 Balance 1100 -300 Meds/Results Medications: Active Medications Generic Name Dose Route Start Last Admin Trade Name Freq PRN Reason Stop Dose Admin Acetaminophen 650 mg 03/01/25 02:11 Acetaminophen 325 Mg Tablet PO Q6H PRN Mild Pain (1-3) or Fever Hydrocodone Bitart/Acetaminophen 1 tab 03/01/25 02:10 03/01/25 05:10 Hydrocodone/Acetaminophen (*Crx) 5-325 Mg Tablet PO 1 tab Q6H PRN Administration Pain Rated 4-6 Radiology Results: ITS Impressions Chest X-Ray 02/28/25 11:48 IMPRESSION: 1. No acute cardiopulmonary findings. Head CT 02/28/25 12:50 IMPRESSION: 1. No fracture or acute intracranial process. 2. 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 3. Age-related changes including mild diffuse volume loss and moderate scattered white matter hypoattenuation consistent with chronic small vessel ischemic disease. Cervical Spine CT 02/28/25 13:38 IMPRESSION: 1. 15 degrees cervicothoracic dextrocurvature scoliosis with severe spondylosis. No acute osseous abnormality. XR ankle RT min 3V 03/01/2025 09:02 Impression: 1: No acute bone or joint abnormality. 2: Mild polyarticular osteoarthritis. Labs Labs: Laboratory Results - last 24 hr 02/28/25 02/28/25 02/28/25 13:48 14:11 19:50 WBC 13.4 H RBC 4.47 Hgb 9.8 L Hct 36.0 L MCV 80.5 MCH 21.9 L MCHC 27.2 L RDW 20.6 H Plt Count 339 MPV 8.9 Immature Gran % (Auto) 0.4 Neut % (Auto) 78.3 H Lymph % (Auto) 6.8 L [place] % (Auto) 11.0 H Eos % (Auto) 2.9 Baso % (Auto) 0.6 Lymph # (Auto) 0.91 [place] # (Auto) 1.5 H Eos # (Auto) 0.4 H Baso # (Auto) 0.1 Abs Immat Gran (auto) 0.06 H Absolute Neuts (auto) 10.5 H Absolute Nucleated RBC 0.000 Band Neutrophils % 0 Nucleated RBC % 0.0 Platelet Estimate Adequate Hypochromasia 1+ Anisocytosis 3+ Schistocytes None seen PT 15.3 H INR 1.2 APTT 30.0 Sodium 142 Potassium 3.9 Chloride 106 Carbon Dioxide 25 Anion Gap 11 BUN 25 H D Creatinine 1.02 H Estim Creat Clear Calc 47 Estimated GFR 53 L Glucose 97 Lactic Acid 2.5 H 1.6 Calcium 9.8 Total Bilirubin 1.0 AST 31 ALT 20 Alkaline Phosphatase 156 H Total Creatine Kinase 390 H Troponin I 0.022 C-Reactive Protein 6.6 H Total Protein 7.5 Albumin 3.7 Urine Color Yellow Urine Appearance Clear Urine pH 6.5 Ur Specific [place] 1.018 Urine Protein 2+ H Urine Glucose (UA) Negative Urine Ketones Trace H Ur Blood (Man) Negative Urine Nitrate Negative Urine Bilirubin Negative Urine Urobilinogen 1.0 Leukocyte Esterase Rfl 1+ H Urine RBC 3-5 H Urine WBC 6-10 H Ur Squamous Epith Cells None seen Urine Bacteria Rare Urine Casts 0-2 03/01/25 06:35 WBC RBC Hgb Hct MCV MCH MCHC RDW Plt Count MPV Immature Gran % (Auto) Neut % (Auto) Lymph % (Auto) [place] % (Auto) Eos % (Auto) Baso % (Auto) Lymph # (Auto) [place] # (Auto) Eos # (Auto) Baso # (Auto) Abs Immat Gran (auto) Absolute Neuts (auto) Absolute Nucleated RBC Band Neutrophils % Nucleated RBC % Platelet Estimate Hypochromasia Anisocytosis Schistocytes PT INR APTT Sodium Potassium Chloride Carbon Dioxide Anion Gap BUN Creatinine Estim Creat Clear Calc Estimated GFR Glucose Lactic Acid Calcium Total Bilirubin AST ALT Alkaline Phosphatase Total Creatine Kinase 241 H Troponin I C-Reactive Protein Total Protein Albumin Urine Color Urine Appearance Urine pH Ur Specific [place] Urine Protein Urine Glucose (UA) Urine Ketones Ur Blood (Man) Urine Nitrate Urine Bilirubin Urine Urobilinogen Leukocyte Esterase Rfl Urine RBC Urine WBC Ur Squamous Epith Cells Urine Bacteria Urine Casts Quality VTE Prophylaxis VTE prophylaxis: mechanical ordered Hospitalist MIPS Advance Care Plan I have confirmed that the patient's Advanced Care Plan is present, code status is documented, or surrogate decision maker is listed in patient medical record.: Yes Medication Reconciliation I have utilized all available resources to obtain, update and review the patients current medications (includes all prescriptions, OTC, herbals, cannabis, and nutritional supplements).: Yes The patient is not eligible for med reconciliation; the patient is in a emergent medical situation where delaying treatment would jeopardize the patients health.: Yes
[2025-03-01 08:00] VITALS: O2SAT 93
[2025-03-01] MEDS: ACETAMINOPHEN 325 MG TABLET 650 MG PO (08:06)
[2025-03-01] MEDS: HYDROmorphone HCL INJ (*CRX) 1 MG/ML SYR 0.5 MG IV PUSH ×3 (08:54→21:59)
[2025-03-01 13:47] VITALS: BP 133/48; PULSE 80; RESP 18; TEMP 36.4; O2SAT 97
[2025-03-01] MEDS: PIPERACILLIN/TAZOBACTAM SOD 3.375 GM in SODIUM CHLORIDE 0.9% IV 50 ML 100 ML IVPB ×2 (14:18→21:24)
[2025-03-01 21:00] VITALS: BP 127/50; PULSE 79; RESP 16; TEMP 36.4; O2SAT 96
[2025-03-02] MEDS: PIPERACILLIN/TAZOBACTAM SOD 3.375 GM in SODIUM CHLORIDE 0.9% IV 50 ML 100 ML IVPB ×4 (02:24→20:29)
[2025-03-02] MEDS: HYDROmorphone HCL INJ (*CRX) 1 MG/ML SYR 0.5 MG IV PUSH ×2 (02:26→20:29)
[2025-03-02 05:37] VITALS: BP 147/57; PULSE 81; RESP 18; TEMP 37; O2SAT 93
[2025-03-02 06:56] LABS: Hematocrit 31.5 % (37.0-47.0); Hemoglobin 8.5 g/dL (12.0-15.0); Immature Granulocyte Percent A 0.6 % (0-0.5); Lymphocytes Absolute Auto 1.28 K/mm3 (0.9-3.2); Mean Corpuscular HGB Conc 27.0 g/dl (32-36); Mean Corpuscular Hemoglobin 22.0 pg (26-34); Mean Corpuscular Volume 81.4 fl (80-100); Nucleated Red Blood Cells Absolute Auto 0.000 K/mm3 (0.0-0.012); Nucleated Red Blood Cells Perc 0.0 % (0.0-0.2); Platelet Count Result 259 k/mm3 (150-375); Red Blood Count 3.87 M/mm3 (4.2-5.4); White Blood Count 9.9 K/mm3 (4.5-10.0)
[2025-03-02 07:16] LABS: Anisocytosis 2+; Hypochromasia 1+; Schistocytes None Seen
[2025-03-02 07:32] LABS: Alanine Aminotransferase 14 U/L (6-35); Albumin Level 3.0 g/dL (3.5-5.1); Alkaline Phosphatase 120 U/L (38-126); Anion Gap 6 mmol/L (4-12); Aspartate Amino Transferase 24 U/L (14-36); Bilirubin,Total 0.6 mg/dL (0.2-1.3); Blood Urea Nitrogen 25 mg/dL (7-17); Calcium 8.8 mg/dL (8.4-10.2); Carbon Dioxide 25 mmol/L (22-30); Chloride 105 mmol/L (98-107); Creatine Kinase 149 U/L (30-135); Estimated CRCL calculation 44 ml/min; Estimated Glomerular Filt Rate 46; Glucose 104 mg/dL (65-110); Potassium 4.1 mmol/L (3.4-5.0); Sodium 136 mmol/L (137-145); Total Protein 6.2 g/dL (6.3-8.2)
[2025-03-02] MEDS: HYDROcodone/acetaminophen (*CRX) 5-325 MG TABLET 1 TAB PO ×2 (08:00→18:40)
[2025-03-02 10:10] LABS: Magnesium 1.9 mg/dL (1.6-2.3)
--- NOTE | 2025-03-02 11:50 | WNDPHOTO ---
PHOTO ONLY - See Nursing Notes and/ or assessments for documentation.
--- NOTE | 2025-03-02 11:51 | WNDPHOTO ---
PHOTO ONLY - See Nursing Notes and/ or assessments for documentation.
--- NOTE | 2025-03-02 12:23 | P.PNIM_ITS ---
Progress Note: A&P Assessment and Plan (1) Intractable back pain: Code(s): M54.9 - Dorsalgia, unspecified Status: Acute Assessment and Plan: No acute findings on imaging. -treated with Hydromorphone, Cyclobenzaprine, Toradol, morphine in ER -Acetaminophen p.r.n. -[place] p.r.n. -Prn Dilaudid for severe pain. -Add Miralax 17 gram daily and Docusate 100 mg PO q12 PRN. -PT/OT -Miralax daily and Colace BID. (2) Elevated CK: Code(s): R74.8 - Abnormal levels of other serum enzymes Status: Acute Assessment and Plan: -- > Patient found down for an unknown amount of time. does not remember falling. CK 390 on admit. -1 L bolus given -trend CK --390->241->149 -trend renal function (3) Leukocytosis: Qualifiers: Leukocytosis type: unspecified Qualified Code(s): D72.829 - Elevated white blood cell count, unspecified Code(s): D72.829 - Elevated white blood cell count, unspecified Status: Acute Assessment and Plan: WBC 13.4 on admit. CRP 6.6 No clear source with clear imaging and UA. Afebr ile. WBC today is 9.9. -trend CBC and CRP -Zosyn for coverage (4) Adult failure to thrive: Code(s): R62.7 - Adult failure to thrive Status: Acute Assessment and Plan: Found down at home by caregiver. Unclear downtime. -Documented history of falls. -PT/OT eval and treat. PT recommending skilled PT. Subjective Date/time seen: 03/02/25 12:23 Interval history: Patient reports pain in back that is an 8, frequent, sharp, and aching. Patient reports nausea earlier in day. Appetite is fair. Denies chest pain, palpitations, headache, dizziness, or shortness of breath. Review of Systems Review of Systems: All systems reviewed & are unremarkable except as noted in HPI and below Exam Const: General: no acute distress Eyes: Sclera: sclerae normal Resp: Effort & Inspection: normal respiratory effort Auscultation: clear to auscultation bilaterally Cardio: Rate: regular rate Rhythm: regular rhythm GI: GI Palp: Yes Soft to palpation Auscultation: normal bowel sounds Urinary Catheter: Urinary Catheter: other (Pink with federico urine. ) Skin: Other: Right lateral ankle and left lateral ankle with deep purple areas. Foam border dressing and elevation on pillows. Neuro: Speech: normal speech Extrem: General: no pedal edema Psych: Mental Status: mental status grossly normal Affect: normal affect Objective Data Vital Signs Vital Signs: Vital Signs - 24 hr 03/01/25 13:18 03/01/25 13:47 03/01/25 20:00 Temperature 97.5 F L Pulse Rate 80 Respiratory Rate 18 Blood Pressure 133/48 L Pulse Oximetry 97 Oxygen Delivery Room Air Room Air 03/01/25 21:00 03/02/25 05:37 03/02/25 08:00 Temperature 97.6 F 98.6 F Pulse Rate 79 81 Respiratory Rate 16 18 Blood Pressure 127/50 L 147/57 H Pulse Oximetry 96 93 Oxygen Delivery Room Air 03/02/25 08:05 Temperature Pulse Rate Respiratory Rate Blood Pressure Pulse Oximetry Oxygen Delivery Room Air Intake/Output Intake/Output: Intake & Output 02/27/25 02/28/25 03/01/25 03/02/25 23:59 23:59 23:59 23:59 Intake Total 1100 1600 640 Output Total 1200 350 Balance 1100 400 290 Meds/Results Medications: Active Medications Generic Name Dose Route Start Last Admin Trade Name Freq PRN Reason Stop Dose Admin Acetaminophen 650 mg 03/01/25 02:11 03/01/25 08:06 Acetaminophen 325 Mg Tablet PO 650 mg Q6H PRN Administration Mild Pain (1-3) or Fever Hydrocodone Bitart/Acetaminophen 1 tab 03/01/25 02:10 03/02/25 08:00 Hydrocodone/Acetaminophen (*Crx) 5-325 Mg Tablet PO 1 tab Q6H PRN Administration Pain Rated 4-6 Hydromorphone HCl 0.5 mg 03/01/25 08:11 03/02/25 02:26 Hydromorphone Hcl Inj (*Crx) 1 Mg/Ml Syr IV PUSH 0.5 mg Q3H PRN Administration Pain Rated 7-10 Piperacillin Sod/Tazobactam 50 mls @ 100 mls/hr 03/01/25 14:00 03/02/25 08:28 Sod 3.375 gm/ Sodium Chloride IVPB Infused Q6H NIEVES Infusion Radiology Results: ITS Impressions Chest X-Ray 02/28/25 11:48 IMPRESSION: 1. No acute cardiopulmonary findings. Head CT 02/28/25 12:50 IMPRESSION: 1. No fracture or acute intracranial process. 2. 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 3. Age-related changes including mild diffuse volume loss and moderate scattered white matter hypoattenuation consistent with chronic small vessel ischemic disease. Cervical Spine CT 02/28/25 13:38 IMPRESSION: 1. 15 degrees cervicothoracic dextrocurvature scoliosis with severe spondylosis. No acute osseous abnormality. Ankle X-Ray 03/01/25 09:21 Impression: 1: No acute bone or joint abnormality. 2: Mild polyarticular osteoarthritis. Labs Labs: Laboratory Results - last 24 hr 03/02/25 06:47 WBC 9.9 RBC 3.87 L Hgb 8.5 L Hct 31.5 L MCV 81.4 MCH 22.0 L MCHC 27.0 L RDW 20.5 H Plt Count 259 MPV 9.1 Immature Gran % (Auto) 0.6 H Neut % (Auto) 69.4 Lymph % (Auto) 13.0 L [place] % (Auto) 10.5 H Eos % (Auto) 5.7 H Baso % (Auto) 0.8 Lymph # (Auto) 1.28 [place] # (Auto) 1.0 H Eos # (Auto) 0.6 H Baso # (Auto) 0.1 Abs Immat Gran (auto) 0.06 H Absolute Neuts (auto) 6.8 H Absolute Nucleated RBC 0.000 Band Neutrophils % Not Reportable Nucleated RBC % 0.0 Platelet Estimate Adequate Hypochromasia 1+ Anisocytosis 2+ Schistocytes None seen Sodium 136 L Potassium 4.1 Chloride 105 Carbon Dioxide 25 Anion Gap 6 BUN 25 H Creatinine 1.14 H Estim Creat Clear Calc 44 Estimated GFR 46 L Glucose 104 Calcium 8.8 Magnesium 1.9 Total Bilirubin 0.6 AST 24 ALT 14 Alkaline Phosphatase 120 Total Creatine Kinase 149 H Total Protein 6.2 L Albumin 3.0 L Quality VTE Prophylaxis VTE prophylaxis: mechanical ordered
[2025-03-02] MEDS: DOCUSATE SODIUM 100 MG CAPSULE PO (12:45)
[2025-03-02 14:00] VITALS: BP 156/74; PULSE 79; RESP 20; TEMP 37.1; O2SAT 99
[2025-03-02 20:00] VITALS: PULSE 80; RESP 18; O2SAT 97
[2025-03-02 21:12] VITALS: BP 145/60; PULSE 80; RESP 18; TEMP 36.8; O2SAT 97
[2025-03-03] MEDS: PIPERACILLIN/TAZOBACTAM SOD 3.375 GM in SODIUM CHLORIDE 0.9% IV 50 ML 100 ML IVPB ×2 (01:20→08:53)
[2025-03-03 05:56] VITALS: BP 131/61; PULSE 79; RESP 16; TEMP 37.6; O2SAT 93
[2025-03-03 05:57] LABS: Hematocrit 29.8 % (37.0-47.0); Hemoglobin 8.2 g/dL (12.0-15.0); Immature Granulocyte Percent A 0.5 % (0-0.5); Lymphocytes Absolute Auto 1.24 K/mm3 (0.9-3.2); Mean Corpuscular HGB Conc 27.5 g/dl (32-36); Mean Corpuscular Hemoglobin 22.1 pg (26-34); Mean Corpuscular Volume 80.3 fl (80-100); Nucleated Red Blood Cells Absolute Auto 0.000 K/mm3 (0.0-0.012); Nucleated Red Blood Cells Perc 0.0 % (0.0-0.2); Platelet Count Result 244 k/mm3 (150-375); Red Blood Count 3.71 M/mm3 (4.2-5.4); White Blood Count 9.1 K/mm3 (4.5-10.0)
[2025-03-03 06:16] LABS: Alanine Aminotransferase 12 U/L (6-35); Albumin Level 2.9 g/dL (3.5-5.1); Alkaline Phosphatase 113 U/L (38-126); Anion Gap 6 mmol/L (4-12); Aspartate Amino Transferase 23 U/L (14-36); Bilirubin,Total 0.5 mg/dL (0.2-1.3); Blood Urea Nitrogen 20 mg/dL (7-17); Calcium 8.7 mg/dL (8.4-10.2); Carbon Dioxide 23 mmol/L (22-30); Chloride 104 mmol/L (98-107); Creatine Kinase 81 U/L (30-135); Estimated CRCL calculation 49 ml/min; Estimated Glomerular Filt Rate 53; Glucose 100 mg/dL (65-110); Magnesium 2.0 mg/dL (1.6-2.3); Potassium 3.8 mmol/L (3.4-5.0); Sodium 133 mmol/L (137-145); Total Protein 5.9 g/dL (6.3-8.2)
[2025-03-03 06:48] LABS: Anisocytosis 2+; Hypochromasia 1+; Schistocytes None Seen
[2025-03-03] MEDS: HYDROcodone/acetaminophen (*CRX) 5-325 MG TABLET 1 TAB PO (09:14)
--- NOTE | 2025-03-03 09:34 | P.PNIM_ITS ---
Progress Note: A&P Assessment and Plan (1) Intractable back pain: Code(s): M54.9 - Dorsalgia, unspecified Status: Acute Assessment and Plan: No acute findings on imaging. Pain management adjusted hopefully PT OT recommendations will improved tomorrow for charge -PT/OT -Miralax daily and Colace BID. Robaxin added and scheduled Tylenol (2) Elevated CK: Code(s): R74.8 - Abnormal levels of other serum enzymes Status: Acute Assessment and Plan: Resolved Patient found down for an unknown amount of time. does not remember falling. CK 390 on admit. 1 L bolus given trend renal function (3) Leukocytosis: Qualifiers: Leukocytosis type: unspecified Qualified Code(s): D72.829 - Elevated white blood cell count, unspecified Code(s): D72.829 - Elevated white blood cell count, unspecified Status: Acute Assessment and Plan: WBC 13.4 on admit. CRP 6.6 No clear source with clear imaging and UA. No leukocytosis Urine culture negative for UTI DC Zosyn (4) Adult failure to thrive: Code(s): R62.7 - Adult failure to thrive Status: Acute Assessment and Plan: Found down at home by caregiver. Unclear downtime. Slightly reviewed okay Documented history of falls. PT/OT eval and treat. PT recommending skilled PT. Time Spent With Patient Time with patient: Greater than 35 minutes Subjective Date/time seen: 03/03/25 09:34 Interval history: 74-year-old female presents the hospital with back pain after fall. Trauma workup negative. Urine cultures came back negative DC antibiotics. Patient was minimal assist x1 today hopefully will discharge tomorrow Review of Systems Review of Systems: 12 systems were reviewed and are negativ e except for as per HPI. Exam Narrative: General: well appearing, appears stated age. HEENT: normocephalic, atraumatic. Mucous membranes moist. EOMI, PERRLA, bilateral sclera anicteric, no conjunctival injection. Neck supple without JVD, lymphadenopathy, or bruit. Respiratory: clear to ascultation bilaterally. No rales/rhonic/wheezes. Cardiovascular: Regular rate and rhythm, normal S1-S2 upon ascultation. No murmurs, rubs, or clicks. PMI is nondisplaced, capillary refill less than 3 second. Abdomen: Soft, round, no pulsatile masses, nondistended and nontender. No rebound, no guarding. No CVA tenderness, no hepatosplenomegaly. Bowel sounds present to all four quadrants. No high pitch or tinkling sounds, resonant to percussion. Extremities: No cyanosis, clubbing, or edema present. Pulses are palpable 2/2. Active ROM to all four extremities. Neuro: Alert and orientated x 4. PERRLA. Cranial nerves 2-12 intact without focal deficit. Skin: Warm, dry, and intact, without rash, erythema, or lesion. Psych: pleasant, cooperative, normal speech, normal affect, no hallucinations, no dysarthia Objective Data Vital Signs Vital Signs: Vital Signs - 24 hr 03/02/25 14:00 03/02/25 20:00 03/02/25 21:12 Temperature 98.8 F 98.2 F Pulse Rate 79 80 80 Respiratory Rate 20 18 18 Blood Pressure 156/74 H 145/60 H Pulse Oximetry 99 97 97 Oxygen Delivery Room Air 03/03/25 05:56 Temperature 99.6 F Pulse Rate 79 Respiratory Rate 16 Blood Pressure 131/61 Pulse Oximetry 93 Oxygen Delivery Intake/Output Intake/Output: Intake & Output 02/28/25 03/01/25 03/02/25 03/03/25 23:59 23:59 23:59 23:59 Intake Total 1100 1600 980 350 Output Total 1200 975 800 Balance 1100 400 5 -450 Meds/Results Medications: Active Medications Generic Name Dose Route Start Last Admin Trade Name Freq PRN Reason Stop Dose Admin Acetaminophen 650 mg 03/01/25 02:11 03/01/25 08:06 Acetaminophen 325 Mg Tablet PO 650 mg Q6H PRN Administration Mild Pain (1-3) or Fever Hydrocodone Bitart/Acetaminophen 1 tab 03/01/25 02:10 03/03/25 09:14 Hydrocodone/Acetaminophen (*Crx) 5-325 Mg Tablet PO 1 tab Q6H PRN Administration Pain Rated 4-6 Docusate Sodium 100 mg 03/02/25 12:23 03/02/25 12:45 Docusate Sodium 100 Mg Capsule PO 100 mg Q12H PRN Administration Constipation Hydromorphone HCl 0.5 mg 03/01/25 08:11 03/02/25 20:29 Hydromorphone Hcl Inj (*Crx) 1 Mg/Ml Syr IV PUSH 0.5 mg Q3H PRN Administration Pain Rated 7-10 Piperacillin Sod/Tazobactam 50 mls @ 100 mls/hr 03/01/25 14:00 03/03/25 08:53 Sod 3.375 gm/ Sodium Chloride IVPB 100 mls/hr Q6H NIEVES Administration Polyethylene Glycol 17 gm 03/02/25 12:25 03/03/25 08:53 Polyethylene Glycol 3350 17 Gm Powd.Pack PO 17 gm QAM NIEVES Administration Radiology Results: ITS Impressions Chest X-Ray 02/28/25 11:48 IMPRESSION: 1. No acute cardiopulmonary findings. Head CT 02/28/25 12:50 IMPRESSION: 1. No fracture or acute intracranial process. 2. 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 3. Age-related changes including mild diffuse volume loss and moderate scattered white matter hypoattenuation consistent with chronic small vessel ischemic disease. Cervical Spine CT 02/28/25 13:38 IMPRESSION: 1. 15 degrees cervicothoracic dextrocurvature scoliosis with severe spondylosis. No acute osseous abnormality. Ankle X-Ray 03/01/25 09:21 Impression: 1: No acute bone or joint abnormality. 2: Mild polyarticular osteoarthritis. Labs Labs: Laboratory Results - last 24 hr 03/02/25 03/03/25 06:47 05:07 WBC 9.1 RBC 3.71 L Hgb 8.2 L Hct 29.8 L MCV 80.3 MCH 22.1 L MCHC 27.5 L RDW 19.9 H Plt Count 244 MPV 9.3 Immature Gran % (Auto) 0.5 Neut % (Auto) 69.3 Lymph % (Auto) 13.6 L [place] % (Auto) 10.5 H Eos % (Auto) 5.3 H Baso % (Auto) 0.8 Lymph # (Auto) 1.24 [place] # (Auto) 1.0 H Eos # (Auto) 0.5 H Baso # (Auto) 0.1 Abs Immat Gran (auto) 0.05 H Absolute Neuts (auto) 6.3 Absolute Nucleated RBC 0.000 Band Neutrophils % Not Reportable Nucleated RBC % 0.0 Platelet Estimate Adequate Hypochromasia 1+ Anisocytosis 2+ Schistocytes None seen Sodium 133 L Potassium 3.8 Chloride 104 Carbon Dioxide 23 Anion Gap 6 BUN 20 H Creatinine 1.02 H Estim Creat Clear Calc 49 Estimated GFR 53 L Glucose 100 Calcium 8.7 Magnesium 1.9 2.0 Total Bilirubin 0.5 AST 23 ALT 12 Alkaline Phosphatase 113 Total Creatine Kinase 81 Total Protein 5.9 L Albumin 2.9 L Hospitalist MIPS Advance Care Plan I have confirmed that the patient's Advanced Care Plan is present, code status is documented, or surrogate decision maker is listed in patient medical record.: Yes Medication Reconciliation I have utilized all available resources to obtain, update and review the patients current medications (includes all prescriptions, OTC, herbals, cannabis, and nutritional supplements).: Yes
[2025-03-03] MEDS: ACETAMINOPHEN 325 MG TABLET 650 MG PO ×3 (10:11→20:47)
[2025-03-03 11:02] VITALS: BMI 37.5
[2025-03-03 14:00] VITALS: BP 120/58; PULSE 79; RESP 18; TEMP 35.9; O2SAT 96
[2025-03-03] MEDS: HYDROmorphone HCL INJ (*CRX) 1 MG/ML SYR 0.5 MG IV PUSH ×2 (14:03→20:07)
[2025-03-03 21:17] VITALS: BP 142/70; PULSE 79; RESP 17; TEMP 36.3; O2SAT 98
[2025-03-04] MEDS: ACETAMINOPHEN 325 MG TABLET 650 MG PO ×2 (05:20→08:50)
[2025-03-04] MEDS: HYDROcodone/acetaminophen (*CRX) 5-325 MG TABLET 1 TAB PO ×2 (05:26→20:08)
[2025-03-04 05:52] VITALS: BP 155/68; PULSE 79; RESP 20; TEMP 36.3; O2SAT 98
[2025-03-04 06:09] LABS: Hematocrit 31.8 % (37.0-47.0); Hemoglobin 8.5 g/dL (12.0-15.0); Immature Granulocyte Percent A 0.5 % (0-0.5); Immature Platelet Fraction Pct 4.8 % (0.9-11.2); Lymphocytes Absolute Auto 1.21 K/mm3 (0.9-3.2); Mean Corpuscular HGB Conc 26.7 g/dl (32-36); Mean Corpuscular Hemoglobin 22.0 pg (26-34); Mean Corpuscular Volume 82.2 fl (80-100); Nucleated Red Blood Cells Absolute Auto 0.000 K/mm3 (0.0-0.012); Nucleated Red Blood Cells Perc 0.0 % (0.0-0.2); Platelet Count Result 237 k/mm3 (150-375); Red Blood Count 3.87 M/mm3 (4.2-5.4); White Blood Count 8.3 K/mm3 (4.5-10.0)
[2025-03-04 06:24] LABS: Alanine Aminotransferase 11 U/L (6-35); Albumin Level 2.9 g/dL (3.5-5.1); Alkaline Phosphatase 112 U/L (38-126); Anion Gap 7 mmol/L (4-12); Aspartate Amino Transferase 24 U/L (14-36); Bilirubin,Total 0.6 mg/dL (0.2-1.3); Blood Urea Nitrogen 17 mg/dL (7-17); Calcium 8.9 mg/dL (8.4-10.2); Carbon Dioxide 22 mmol/L (22-30); Chloride 107 mmol/L (98-107); Creatine Kinase 79 U/L (30-135); Estimated CRCL calculation 56 ml/min; Estimated Glomerular Filt Rate > 60; Glucose 92 mg/dL (65-110); Magnesium 2.2 mg/dL (1.6-2.3); Potassium 4.6 mmol/L (3.4-5.0); Sodium 136 mmol/L (137-145); Total Protein 5.9 g/dL (6.3-8.2)
[2025-03-04 07:00] LABS: Anisocytosis 2+; Hypochromasia 1+; Schistocytes None Seen
--- NOTE | 2025-03-04 08:15 | P.PNIM_ITS ---
Progress Note: A&P Assessment and Plan (1) Intractable back pain: Code(s): M54.9 - Dorsalgia, unspecified Status: Acute Assessment and Plan: No acute findings on imaging. Patient will be discharged to [facility] -PT/OT -Miralax daily and Colace BID. Robaxin added and scheduled Tylenol (2) Elevated CK: Code(s): R74.8 - Abnormal levels of other serum enzymes Status: Acute Assessment and Plan: Resolved Patient found down for an unknown amount of time. does not remember falling. CK 390 on admit. 1 L bolus given trend renal function (3) Leukocytosis: Qualifiers: Leukocytosis type: unspecified Qualified Code(s): D72.829 - Elevated white blood cell count, unspecified Code(s): D72.829 - Elevated white blood cell count, unspecified Status: Acute Assessment and Plan: Resolved WBC 13.4 on admit. CRP 6.6 No clear source with clear imaging and UA. No leukocytosis Urine culture negative for UTI DC Zosyn (4) Adult failure to thrive: Code(s): R62.7 - Adult failure to thrive Status: Acute Assessment and Plan: Found down at home by caregiver. Unclear downtime. Slightly reviewed okay Documented history of falls. PT/OT eval and treat. PT recommending skilled PT. Patient informed that home is not a safe discharge plan she will be discharging to SNF (5) CARLENE (acute kidney injury): Code(s): N17.9 - Acute kidney failure, unspecified Status: Acute Assessment and Plan: Resolved IV hydration Subjective Date/time seen: 03/04/25 08:15 Interval history: 74-year-old female presents the hospital with back pain after fall. Trauma workup negative. Urine cultures came back negative DC antibiotics. Patient is unsafe to discharge home as she was found down with rhabdo after a fall. Yesterday she was refusing SNF however today I informed her that she is unsafe to go home and I will be discharging her to a SNF she states that she will pick at 1 with her care worker this afternoon. Patient medically ready for discharge. Will need placement Exam Narrative: General: well appearing, appears stated age. HEENT: normocephalic, atraumatic. Mucous membranes moist. EOMI, PERRLA, bilateral sclera anicteric, no conjunctival injection. Neck supple without JVD, lymphadenopathy, or bruit. Respiratory: clear to ascultation bilaterally. No rales/rhonic/wheezes. Cardiovascular: Regular rate and rhythm, normal S1-S2 upon ascultation. No murmurs, rubs, or clicks. PMI is nondisplaced, capillary refill less than 3 second. Abdomen: Obese Soft, round, no pulsatile masses, nondistended and nontender. No rebound, no guarding. No CVA tenderness, no hepatosplenomegaly. Bowel sounds present to all four quadrants. No high pitch or tinkling sounds, resonant to percussion. Extremities: No cyanosis, clubbing, or edema present. Pulses are palpable 2/2. Active ROM to all four extremities. Neuro: Alert and orientated x 4. PERRLA. Cranial nerves 2-12 intact without focal deficit. Skin: Warm, dry, and intact, without rash, erythema, or lesion. Psych: pleasant, cooperative, normal speech, normal affect, no hallucinations, no dysarthia Objective Data Vital Signs Vital Signs: Vital Signs - 24 hr 03/03/25 14:00 03/03/25 20:00 03/03/25 21:17 Temperature 96.7 F L 97.4 F L Pulse Rate 79 79 Respiratory Rate 18 17 Blood Pressure 120/58 L 142/70 H Pulse Oximetry 96 98 Oxygen Delivery Room Air 03/04/25 05:52 Temperature 97.4 F L Pulse Rate 79 Respiratory Rate 20 Blood Pressure 155/68 H Pulse Oximetry 98 Oxygen Delivery Intake/Output Intake/Output: Intake & Output 03/01/25 03/02/25 03/03/25 03/04/25 23:59 23:59 23:59 23:59 Intake Total 0642 258 1349 0 Output Total 2308 444 3086 650 Balance 400 5 -563 -650 Meds/Results Medications: Active Medications Generic Name Dose Route Start Last Admin Trade Name Freq PRN Reason Stop Dose Admin Acetaminophen 650 mg 03/03/25 09:41 03/04/25 05:20 Acetaminophen 325 Mg Tablet PO 650 mg Q6H NIEVES Administration Hydrocodone Bitart/Acetaminophen 1 tab 03/01/25 02:10 03/04/25 05:26 Hydrocodone/Acetaminophen (*Crx) 5-325 Mg Tablet PO 1 tab Q6H PRN Administration Pain Rated 4-6 Docusate Sodium 100 mg 03/02/25 12:23 03/02/25 12:45 Docusate Sodium 100 Mg Capsule PO 100 mg Q12H PRN Administration Constipation Hydromorphone HCl 0.5 mg 03/01/25 08:11 03/03/25 20:07 Hydromorphone Hcl Inj (*Crx) 1 Mg/Ml Syr IV PUSH 0.5 mg Q3H PRN Administration Pain Rated 7-10 Methocarbamol 500 mg 03/03/25 13:00 03/03/25 20:46 Methocarbamol 500 Mg Tablet PO 500 mg QID NIEVES Administration Polyethylene Glycol 17 gm 03/02/25 12:25 03/03/25 08:53 Polyethylene Glycol 3350 17 Gm Powd.Pack PO 17 gm QAM NIEVES Administration Radiology Results: ITS Impressions Chest X-Ray 02/28/25 11:48 IMPRESSION: 1. No acute cardiopulmonary findings. Head CT 02/28/25 12:50 IMPRESSION: 1. No fracture or acute intracranial process. 2. 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 3. Age-related changes including mild diffuse volume loss and moderate scattered white matter hypoattenuation consistent with chronic small vessel ischemic disease. Cervical Spine CT 02/28/25 13:38 IMPRESSION: 1. 15 degrees cervicothoracic dextrocurvature scoliosis with severe spondylosis. No acute osseous abnormality. Ankle X-Ray 03/01/25 09:21 Impression: 1: No acute bone or joint abnormality. 2: Mild polyarticular osteoarthritis. Labs Labs: Laboratory Results - last 24 hr 03/04/25 05:31 WBC 8.3 RBC 3.87 L Hgb 8.5 L Hct 31.8 L MCV 82.2 MCH 22.0 L MCHC 26.7 L RDW 20.3 H Plt Count 237 MPV 10.1 Immature Gran % (Auto) 0.5 Neut % (Auto) 66.4 Lymph % (Auto) 14.7 L [place] % (Auto) 11.4 H Eos % (Auto) 6.3 H Baso % (Auto) 0.7 Lymph # (Auto) 1.21 [place] # (Auto) 0.9 H Eos # (Auto) 0.5 H Baso # (Auto) 0.1 Abs Immat Gran (auto) 0.04 H Absolute Neuts (auto) 5.5 Absolute Nucleated RBC 0.000 Band Neutrophils % Not Reportable Nucleated RBC % 0.0 Platelet Estimate Adequate % Immature Plt Fraction 4.8 Hypochromasia 1+ Anisocytosis 2+ Schistocytes None seen Sodium 136 L Potassium 4.6 Chloride 107 Carbon Dioxide 22 Anion Gap 7 BUN 17 Creatinine 0.89 Estim Creat Clear Calc 56 Estimated GFR > 60 Glucose 92 Calcium 8.9 Magnesium 2.2 Total Bilirubin 0.6 AST 24 ALT 11 Alkaline Phosphatase 112 Total Creatine Kinase 79 Total Protein 5.9 L Albumin 2.9 L
--- NOTE | 2025-03-04 12:31 | P.DS_ITS ---
DS: Admitting Diagnosis Discharge Date 03/04/2025 Admitting Diagnosis Acute pain DS: Discharge Diagnosis Discharge Diagnosis (1) Intractable back pain: Code(s): M54.9 - Dorsalgia, unspecified Status: Acute Assessment and Plan: No acute findings on imaging. Patient will be discharged to N -PT/OT -Miralax daily and Colace BID. Robaxin added and scheduled Tylenol (2) Elevated CK: Code(s): R74.8 - Abnormal levels of other serum enzymes Status: Acute Assessment and Plan: Resolved Patient found down for an unknown amount of time. does not remember falling. CK 390 on admit. 1 L bolus given trend renal function (3) Leukocytosis: Qualifiers: Leukocytosis type: unspecified Qualified Code(s): D72.829 - Elevated white blood cell count, unspecified Code(s): D72.829 - Elevated white blood cell count, unspecified Status: Acute Assessment and Plan: Resolved WBC 13.4 on admit. CRP 6.6 No clear source with clear imaging and UA. No leukocytosis Urine culture negative for UTI DC Zosyn (4) Adult failure to thrive: Code(s): R62.7 - Adult failure to thrive Status: Acute Assessment and Plan: Found down at home by caregiver. Unclear downtime. Slightly reviewed oknorman Documented history of falls. PT/OT eval and treat. PT recommending skilled PT. Patient informed that home is not a safe discharge plan she will be discharging to [facility] (5) CARLENE (acute kidney injury): Code(s): N17.9 - Acute kidney failure, unspecified Status: Acute Assessment and Plan: Resolved IV hydration DS: Summary Hospital Course Reason for hospitalization: Found down with fall Hospital Course: 74-year-old female presents the hospital after being found down with back pain after fall. Trauma workup was negative for acute findings. No infection was found the antibiotics were discontinued. Patient was treated with IV fluids for rhabdomyolysis and CARLENE due to dehydration. Patient has worked with PT and OT as able to get around with a walker short distances. Patient's vital signs and blood work are stable. Patient had acute pain while in hospital she was started on scheduled Tylenol and Robaxin with great improvement pain management. 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 Case management is setting up arrangements for patient to go home with APS notified. Per the patient she is back to her baseline. Will order home PT and OT. Since patient has help at home and states that she is back to her baseline will discharge her home. Status at Discharge Functional status at discharge: uses cane/walker Overall status at discharge: patient is back to baseline Time Spent with Patient Time attestation: Total time spent providing and/or coordinating discharge services: Time spent: Greater than 30 minutes Exam Narrative: General: well appearing, appears stated age. HEENT: normocephalic, atraumatic. Mucous membranes moist. EOMI, PERRLA, bilateral sclera anicteric, no conjunctival injection. Neck supple without JVD, lymphadenopathy, or bruit. Respiratory: clear to ascultation bilaterally. No rales/rhonic/wheezes. Cardiovascular: Regular rate and rhythm, normal S1-S2 upon ascultation. No murmurs, rubs, or clicks. PMI is nondisplaced, capillary refill less than 3 second. Abdomen: Obese Soft, round, no pulsatile masses, nondistended and nontender. No rebound, no guarding. No CVA tenderness, no hepatosplenomegaly. Bowel sounds present to all four quadrants. No high pitch or tinkling sounds, resonant to percussion. Extremities: No cyanosis, clubbing, or edema present. Pulses are palpable 2/2. Active ROM to all four extremities. Neuro: Alert and orientated x 4. PERRLA. Cranial nerves 2-12 intact without focal deficit. Skin: Warm, dry, and intact, without rash, erythema, or lesion. Psych: pleasant, cooperative, normal speech, normal affect, no hallucinations, no dysarthia DS: Data Data Completed and Pending Labs on day of discharge: Labs from last 24 hours 03/04/25 05:31 WBC 8.3 RBC 3.87 L Hgb 8.5 L Hct 31.8 L MCV 82.2 MCH 22.0 L MCHC 26.7 L RDW 20.3 H Plt Count 237 MPV 10.1 Immature Gran % (Auto) 0.5 Neut % (Auto) 66.4 Lymph % (Auto) 14.7 L [place] % (Auto) 11.4 H Eos % (Auto) 6.3 H Baso % (Auto) 0.7 Lymph # (Auto) 1.21 [place] # (Auto) 0.9 H Eos # (Auto) 0.5 H Baso # (Auto) 0.1 Abs Immat Gran (auto) 0.04 H Absolute Neuts (auto) 5.5 Absolute Nucleated RBC 0.000 Band Neutrophils % Not Reportable Nucleated RBC % 0.0 Platelet Estimate Adequate % Immature Plt Fraction 4.8 Hypochromasia 1+ Anisocytosis 2+ Schistocytes None seen Sodium 136 L Potassium 4.6 Chloride 107 Carbon Dioxide 22 Anion Gap 7 BUN 17 Creatinine 0.89 Estim Creat Clear Calc 56 Estimated GFR > 60 Glucose 92 Calcium 8.9 Magnesium 2.2 Total Bilirubin 0.6 AST 24 ALT 11 Alkaline Phosphatase 112 Total Creatine Kinase 79 Total Protein 5.9 L Albumin 2.9 L Discharge Plan Discharge Consulting providers: Megan Bustillos Discharging Clinician: Renetta Rodriguez Anticipated Discharge Date/Time: 03/04/25 12:40 Patient Disposition: Home Activity: may shower Diet: as tolerated Discharge Instructions: Discharge instructions: Take medications as prescribed New medications prescribed: Robaxin which is a muscle relaxer You are activity as tolerated Monitor blood pressures Avoid social areas, you wear a mask when in social settings Encouraged to continue with yearly vaccinations Return to the emergency department if he developed sudden shortness of breath, chest pain, nausea, vomiting, upset stomach or intractable diarrhea Return to the emergency department if you develop fever greater than 101.5 Follow-up with: Your primary care physician within 1-2 weeks for post hospitalization check up Thank you for [facility] for your healthcare needs Patient Instructions: Antibiotic Form Patient Language: Urugu[place] Stand Alone Forms: General Discharge Information Follow-up/Referrals: PHYSICIAN,TYPEWRITER RIBBON WINDER [Primary Care Provider, Internal Medicine] - 1 Week Discharge Medications: New methocarbamol 500 mg Tablet 500 mg PO QID 7 Days Qty: 28 0RF Continued trazodone 50 mg tablet Date of admission: 02/28/25 15:53 Primary Care Provider: PHYSICIAN,TYPEWRITER RIBBON WINDER Admitting Provider: Shayy Stoddard Attending physician on admission: Shayy Stoddard Condition: Stable Quality VTE Prophylaxis VTE prophylaxis: mechanical ordered Hospitalist MIPS Heart Failure (Exclusion) Patient has history of Heart Transplant or Left Ventricular Assistive Device?: No IF YES, STOP HERE Heart Failure (Qualifier) Patient has current or prior documentation of LVEF less than or equal to 40%, or mod/servere depressed LVSF?: No IF NO, STOP HERE
--- NOTE | 2025-03-04 13:59 | WNDPHOTO ---
PHOTO ONLY - See Nursing Notes and/ or assessments for documentation.
[2025-03-04 14:00] VITALS: BP 139/64; PULSE 79; RESP 18; TEMP 36.2; O2SAT 96
--- NOTE | 2025-03-04 14:01 | WNDPHOTO ---
PHOTO ONLY - See Nursing Notes and/ or assessments for documentation.
--- NOTE | 2025-03-04 18:23 | PC.NURSE ---
03-04-25 1800 Patient requests ambulance to home. Informed patient that there are several other people waiting for ambulances at the moment and it might be later tonight till she can get a ride home. Patient verbalizes understanding.
== END 2025-03-04 21:15 | disposition home or self-care (01) ==
LOC: ANHED 13:13 → ANH3MEDSUR 17:38
PROVIDERS: Nurse Practitioner Adult Health; Nurse Practitioner Family; Physician Assistant; Admitting Provider Internal Medicine; Emergency Provider Student in an Organized Health Care Education/Training Program; Visit Provider Internal Medicine
DX: M54.9 Dorsalgia, unspecified (principal); W18.30XA Fall on same level, unspecified, initial encounter; M47.812 Spondylosis without myelopathy or radiculopathy, cervical region; M25.571 Pain in right ankle and joints of right foot; R74.8 Abnormal levels of other serum enzymes; D64.9 Anemia, unspecified; D72.829 Elevated white blood cell count, unspecified; R62.7 Adult failure to thrive; N17.9 Acute kidney failure, unspecified; E86.0 Dehydration; Z87.891 Personal history of nicotine dependence; Z91.81 History of falling
CPT/HCPCS: 36415; 70450; 71046; 72125; 73610; 80053; 81001; 82550; 83605; 83735; 84484; 85025; 85055; 85610; 85730; 86140; 87086; 93005; 96361; 96365; 96375; 96376; 97110; 97116; 97162; 97166; 97530; 97535; 99212; 99285; A9270; G0378; G0463; J1171; J1885; J2270; J2543; J7030